=== PATIENT | male | born 1970 | race Caucasian/White ===

== ENCOUNTER 2020-04-02 09:48 | Emergency (ER) | payer OTHER, SELFPAY ==
--- NOTE | 2020-04-02 | XR_ITS ---
WS: [id number] RIGHT FOOT: 3 VIEW(S) TECHNIQUE: AP, oblique and lateral. HISTORY: TRAUMA COMPARISON: None available. No acute fracture or dislocation. Mild narrowing of the first metatarsophalangeal joint. Peripheral vascular calcifications. XR/XR foot RT min 3V* [id number] IMPRESSION: 1. No fracture identified. 2. Peripheral vascular calcifications.
[2020-04-02 09:49] VITALS: O2SAT 95
[2020-04-02 09:56] VITALS: BP 186/112; PULSE 101; RESP 16; TEMP 36.4; O2SAT 98; BMI 35.2
--- NOTE | 2020-04-02 10:12 | XR_ITS ---
WS: [id number] RIGHT KNEE: 3 VIEW(S) TECHNIQUE: AP, oblique(s) and lateral. HISTORY: fall COMPARISON: None available. No fracture or dislocation. No joint space narrowing or osteophytes. No joint effusion. Mild soft tissue edema over the anterior knee. XR/XR knee RT 3V* [id number] IMPRESSION: Mild soft tissue edema anterior to the knee. No fracture.
--- NOTE | 2020-04-02 10:12 | XR_ITS ---
WS: [id number] RIGHT FEMUR: 2 VIEW(S) TECHNIQUE: AP and lateral. HISTORY: fall COMPARISON: None available. No fracture or dislocation. Soft tissues are unremarkable. No foreign body or calcification. XR/XR femur RT min 2V* [id number] Impression: Normal RIGHT femur.
--- NOTE | 2020-04-02 10:12 | XR_ITS ---
WS: [id number] RIGHT TIBIA-FIBULA 2 VIEWS HISTORY: fall COMPARISON: None available. No fracture, dislocation or joint abnormality. XR/XR tibia fibula RT 2V [id number] IMPRESSION: Normal RIGHT tibia-fibula.
--- NOTE | 2020-04-02 10:14 | W.ED.EXTPRO ---
HPI - Extremity Problem General: Chief complaint: Extremity Injury, Lower Stated complaint: PAIN IN RT LEG - THROWN FROM HORSE Time Seen by Provider: 04/02/20 10:06 Source: patient Mode of arrival: wheelchair History of Present Illness: HPI Narrative: right leg pain MD Complaint: extremity pain Onset (ago): minute(s) (30 min ago ) Pain Consistency: constant Location: right Severity scale (1-10): >10 Quality: stabbing and aching Exacerbating factors: weight bearing Review of Systems General: Reports: 10 or more systems reviewed and unremarkable except in HPI and below Musc: Reports: extremity pain (right lower extremity pain-diffuse), extremity swelling and limited range of motion PFSH ED PFSH: Social History Smoking and tobacco status: never smoked Physical Exam Const: COMMON NORMALS: no apparent distress, oriented x3, no limitations and alert GENERAL APPEARANCE: cooperative and comfortable ORIENTATION/CONSCIOUSNESS: Yes awake, Yes oriented to person, Yes oriented to place and Yes oriented to time HENMT: COMMON NORMALS: normocephalic, head/scalp atraumatic, external ears normal, EAC's normal, TM's normal bilaterally and external nose normal HEAD & SCALP: normal to inspection, normocephalic and atraumatic FACE & SINUS: normal facial exam, sinuses nontender and face symmetric NOSE: external nose normal, nares normal and no nasal discharge EXTERNAL EAR: Yes external ears normal EXTERNAL AUDITORY CANAL: EAC's normal TYMPANIC MEMBRANE: TM's normal bilaterally MOUTH: oral and palatal mucosa normal, lip normal and tongue normal THROAT: posterior oropharynx normal, tonsils normal and uvula midline Eye: COMMON NORMALS: PERRL, EOMs intact bilaterally and conjunctivae normal GENERAL EYE: normal appearance of both eyes and normal light reflex EYELID: eyelids normal CONJUNCTIVA: Yes conjunctivae normal PUPIL: Yes PERRL EOM: Yes EOM abnormal DIRECT OPHTHALMOSCOPY: Yes normal light reflex Neck/C-Spine: COMMON NORMALS: full ROM, no lymphadenopathy, supple, no meningeal signs, no JVD and thyroid normal GENERAL: Yes normal visual inspection THYROID: thyroid normal CERVICAL SPINE: Yes cervical ROM normal and Yes normal cervical lordosis Lymph: LYMPHATIC: no lymphadenopathy noted Chest: COMMONS NORMALS: inspection of chest normal and palpation of chest normal Resp: COMMON NORMALS: normal respiratory effort, no retractions and clear to auscultation bilaterally AUSCULTATION: clear to auscultation bilaterally Cardio: COMMON NORMALS: no JVD, regular rate, regular rhythm, S1 normal heart sound, S2 normal heart sound, no gallops, no clicks, no murmurs, no rub and peripheral pulses 2+ throughout RATE: regular rate RHYTHM: regular rhythm HEART SOUNDS: S1 normal and S2 normal PERIPHERAL PULSES: pulses 2+ throughout GI: COMMON NORMALS: normal to inspection, nondistended, normoactive bowel sounds, soft to palpation, non-tender and no masses PALPATION: Yes soft : COMMON NORMALS: Yes no CVA tenderness BLADDER/KIDNEY EXAM: Yes no CVA tenderness Back/Pelvis: COMMON NORMALS: no CVA tenderness, thoracic and lumbar spine normal to inspection, no thoracic nor lumbar tenderness and thoraco-lumbar ROM normal Extremity: COMMON NORMALS: normal to inspection, full ROM, normal capillary refill, no joint enlargement, no clubbing, cyanosis or edema, no calf tenderness and no pedal edema GENERAL: Yes normal exam except as noted RIGHT LOWER EXTREMITY: Yes upper leg (swelling and pain), Yes lower leg (swelling and pain) and Yes foot & digits LEFT LOWER EXTREMITY: Yes ankle joint (swelling and pain ) Neuro: COMMON NORMALS: oriented x3, moves all extremities, no focal motor deficits, no sensory deficits noted and gait normal SENSORIUM/ORIENTATION: Yes alert, Yes oriented to person, Yes oriented to place and Yes oriented to time MENINGEAL SIGNS: Yes no meningeal signs Psych: COMMON NORMALS: mental status grossly normal, thought process normal, cooperative, affect normal, speech normal and activity/motor behavior normal SPEECH: Yes normal speech THOUGHT PROCESS: normal thought process Skin: COMMON NORMALS: no rashes or lesions noted, no wounds and skin turgor normal GENERAL SKIN EXAM: no rashes or lesions noted and turgor normal TRAUMA: no lacerations or abrasions (noted to right knee ) Course ED course: Pt complains of right lower extremity pain after horse fell on him while riding and slid down hill with his leg pinned between ground and horse. Pt unable to bear weight. Radiology ordered and pain medication. Reevaluation(s): Reevaluation #1: No acute fx noted. I am concerned due to the crushing nature of the trauma that the pt could develop compartment syndrome if he does not rest, ICE, and elevate adequately. Strict instructions for offloading for 48 hours at this time and to follow up with PCP in 2 days. Return to ER if worsening in symptoms. Time: 11:59 Vital Signs: Vital signs: Vital Signs Temperature 97.5 F L 04/02/20 09:56 Pulse Rate 101 H 04/02/20 09:56 Respiratory Rate 15 04/02/20 11:27 Blood Pressure 186/112 04/02/20 09:56 Pulse Oximetry 98 04/02/20 11:27 MDM - Extremity (Nontraumatic) Imaging Data^: Other Xray: Radiologist's impression: [address] [address] XRay Report Signed Patient: Keven Gannon Unit #: [id number] : 1970 Age/Sex: 50 / M ADM Date: 04/02/20 Loc: ER Room/Bed: Attending Dr: Ordering Provider/Ordering MD: Claudia Skelton P[employer] CLIPPER Date of Service: 04/02/20 Procedure(s): XR tibia fibula RT 2V 81596 Accession Number(s): [id number] Report Number: [id number] WS: [id number] RIGHT TIBIA-FIBULA 2 VIEWS HISTORY: fall COMPARISON: None available. No fracture, dislocation or joint abnormality. XR/XR tibia fibula RT 2V 00294 IMPRESSION: Normal RIGHT tibia-fibula. Dictated By: Meche Lawson DO Signed By: Meche Lawson DO Signed Date/Time: 04/02/20 1041 DD/ [address] [address] XRay Report Signed Patient: Keven Gannon Unit #: [id number] : 1970 Age/Sex: 50 / M ADM Date: 04/02/20 Loc: ER Room/Bed: Attending Dr: Ordering Provider/Ordering MD: Claudia Skelton P[employer]IR CLIPPER Date of Service: 04/02/20 Procedure(s): XR femur RT min 2V* 02835 Accession Number(s): [id number] Report Number: [id number] WS: [id number] RIGHT FEMUR: 2 VIEW(S) TECHNIQUE: AP and lateral. HISTORY: fall COMPARISON: None available. No fracture or dislocation. Soft tissues are unremarkable. No foreign body or calcification. XR/XR femur RT min 2V* 87613 Impression: Normal RIGHT femur. Dictated By: Meche Lawson DO Signed By: Meche Lawson DO Signed Date/Time: 04/02/20 1038 DD/ [address] [place] [address] XRay Report Signed Patient: Keven Gannon Unit #: [id number] : 1970 Age/Sex: 50 / M ADM Date: 04/02/20 Loc: ER Room/Bed: Attending Dr: Ordering Provider/Ordering MD: Claudia Skelton P[employer]IR CLIPPER Date of Service: 04/02/20 Procedure(s): XR knee RT 3V* 48828 Accession Number(s): [id number] Report Number: [id number] WS: [id number] RIGHT KNEE: 3 VIEW(S) TECHNIQUE: AP, oblique(s) and lateral. HISTORY: fall COMPARISON: None available. No fracture or dislocation. No joint space narrowing or osteophytes. No joint effusion. Mild soft tissue edema over the anterior knee. XR/XR knee RT 3V* [id number] IMPRESSION: Mild soft tissue edema anterior to the knee. No fracture. Dictated By: Meche Lawson DO Signed By: Meche Lawson DO Signed Date/Time: 04/02/20 1040 DD/ [address] [place] [address] XRay Report Signed Patient: Keven Gannon Unit #: [id number] : 1970 Age/Sex: 50 / M ADM Date: 04/02/20 Loc: ER Room/Bed: Attending Dr: Ordering Provider/Ordering MD: Claudia Skelton P[employer] CLIPPER Date of Service: 04/02/20 Procedure(s): XR foot RT min 3V* 01008 Accession Number(s): [id number] Report Number: [id number] WS: [id number] RIGHT FOOT: 3 VIEW(S) TECHNIQUE: AP, oblique and lateral. HISTORY: TRAUMA COMPARISON: None available. No acute fracture or dislocation. Mild narrowing of the first metatarsophalangeal joint. Peripheral vascular calcifications. XR/XR foot RT min 3V* [id number] IMPRESSION: 1. No fracture identified. 2. Peripheral vascular calcifications. Dictated By: Meche Lawson DO Signed By: Meche Lawson DO Signed Date/Time: 04/02/201134 DD/ 33 Discharge Plan Discharge Patient Disposition: Home, Self-Care Clinical Impression: Contusion Condition: Stable Prescriptions: New cyclobenzaprine 10 mg tablet 10 mg PO BID PRN (Reason: muscle spasm) Qty: 10 RF: 0 Tylenol-Codeine #3 300-30 mg tablet 1 tab PO Q8H PRN (Reason: pain) Qty: 14 RF: 0 No Action pioglitazone 15 mg tablet 15 mg PO DAILY RF: 0 olmesartan 20 mg tablet 20 mg PO DAILY RF: 0 Discharge Diet: Usual diet Discharge Activity: Use walker/crutches as instructed Activity Restrictions/Additional Instructions: Rest, ICE, elevate x 48 hours; follow up with PCP without fail. Return for worsening in pain or swelling and warmth of the right leg. Stand Alone Forms: Work/School Release Coding Level of Care Code ED Health Diagnostics Teacher for Chg Fwd Exam Comprehensive
--- NOTE | 2020-04-02 11:03 | PC.NURSE ---
Pillow placed under right knee
[2020-04-02 11:27] VITALS: RESP 15; O2SAT 98
[2020-04-02] MEDS: HYDROmorphone 1 mg/mL INJ 1 mL IVP (11:27)
[2020-04-02] MEDS: ondansetron 2 mg/ML SDV 2 mL 4 MG IVP (11:27)
--- NOTE | 2020-04-02 12:14 | PC.NURSE ---
Read and agree with assessment
[2020-04-02 12:18] VITALS: BP 121/81; PULSE 79; RESP 16; O2SAT 96
[2020-04-02] MEDS: neomycin-poly-bacitracin oint 0.9 gm Pkt 1 APPLIC TOPICAL (12:45)
--- NOTE | 2020-04-02 12:51 | PC.NURSE ---
Wound on right knee cleaned with soap and water. HAMIDA was applied directly to the wound. The wound was covered with witha non-stick dressing. This was wrapped with coban.
--- NOTE | 2020-04-02 12:57 | PC.NURSE ---
Patient up for discharge. He was offered paper scrubs to facilitate his discharge. He insists on waiting for his family to bring him sweatpants.
[2020-04-02 14:03] VITALS: BP 145/85; PULSE 75; RESP 15; O2SAT 97
[2020-04-02] MEDS: tetanus-diphtheria tox (adult) 0.5 mL SDV IM (14:06)
== END 2020-04-02 14:25 | disposition home or self-care (01) ==
PROVIDERS: Emergency Provider Nurse Practitioner Family
DX: S80.11XA Contusion of right lower leg, initial encounter (principal); V80.919A Animal-rider injured in unspecified transport accident, initial encounter; Z23 Encounter for immunization
CPT/HCPCS: 12345; 29530; 73552; 73562; 73590; 73630; 90471; 90714; 96374; 96375; 96376; 99282; 99283; E0114; J1170; J2405

== ENCOUNTER → 2020-08-28 10:24 | Outpatient (BNVA) | payer MEDICARE, SELFPAY | PROVIDERS: Visit Provider Nurse Practitioner Family | DX: E11.9 Type 2 diabetes mellitus without complications (principal); I10 Essential (primary) hypertension | CPT/HCPCS: 80053; 80061; 83036; 84443; 85025 ==

== ENCOUNTER 2021-03-26 21:47 | Inpatient (IN) | payer MEDICARE, SELFPAY ==
[2021-03-26 21:50] VITALS: BP 231/155; PULSE 97; RESP 16; TEMP 36.6; O2SAT 99; BMI 36.6
--- NOTE | 2021-03-26 21:57 | XRR_ITS ---
PROCEDURE INFORMATION: Exam: XR Chest Exam date and time: 03/26/2021 10:00 PM Age: 51 years old Clinical indication: Cough and shortness of breath; Patient HX: SOB, cough, pain under left armpit, left arm numbness; Additional info: TIA TECHNIQUE: Imaging protocol: XR of the chest. Views: 1 view. COMPARISON: CR Chest 1 [place] [id number] 06/04/2014 10:41 PM FINDINGS: Lungs: There are multiple calcified pulmonary nodules consistent with prior granulomatous disease. Pleural spaces: Unremarkable. No pleural effusion. No pneumothorax. Heart/Mediastinum: Unremarkable. No cardiomegaly. Bones/joints: Unremarkable. XR/XR chest 1V portable [id number] IMPRESSION: No acute disease.
--- NOTE | 2021-03-26 21:57 | ECG_ITS ---
[facility] Test Date: 2021-03-26 Pat Name: Keven Gannon Department: Room: Gender: Male Legal Office Administrator: : 1970 Requested By: Yvrose Pantoja Order Number: [id number] Kimberly MD: Tobias Higuera M.D. Measurements Intervals [place] Rate: 88 P: 45 SC: 158 QRS: -21 QRSD: 94 T: 115 QT: 346 QTc: 421 Interpretive Statements SINUS RHYTHM POSSIBLE LEFT ATRIAL ENLARGEMENT [-0.1mV P WAVE IN V1/V2] BORDERLINE LEFT AXIS DEVIATION [QRS AXIS < -20] POSSIBLE RIGHT VENTRICULAR CONDUCTION DELAY [RSR (QR) IN V1/V2] LEFT VENTRICULAR HYPERTROPHY AND ST-T CHANGE [VOLTAGE CRITERIA PLUS ST/T ABNORMALITY] No previous ECG available for comparison Electronically Signed On 03-27-2021 9:33:43 CDT by Tobias Higuera M.D. [email or web address]/store/NU/[id number] f
--- NOTE | 2021-03-26 21:57 | CTR_ITS ---
PROCEDURE INFORMATION: Exam: CT Head Without Contrast Exam date and time: 03/26/2021 10:02 PM Age: 51 years old Clinical indication: Pain; Weakness, extremity; Headache; Patient HX: PIRES. Left arm numbness; Additional info: TIA TECHNIQUE: Imaging protocol: Computed tomography of the head without contrast. Radiation optimization: All CT scans at this facility use at least one of these dose optimization techniques: automated exposure control; mA and/or kV adjustment per patient size (includes targeted exams where dose is matched to clinical indication); or iterative reconstruction. COMPARISON: No relevant prior studies available. RADIATION DOSE METRICS: Total DLP (mGy-cm): 812.54 FINDINGS: Brain: There is mild parenchymal atrophy and chronic small vessel disease. No acute infarct or hemorrhage. Cerebral ventricles: No ventriculomegaly. Bones/joints: Unremarkable. No acute fracture. Paranasal sinuses: Paranasal sinuses are clear. No air-fluid level. Mastoid air cells: Visualized mastoid air cells are clear. Soft tissues: Unremarkable. CT/CT head wo con* [id number] IMPRESSION: 1. No acute infarct or hemorrhage. 2. Mild parenchymal atrophy and chronic small vessel disease. Radiation Dose CTDIVOL = (mGy): DLP = 812.54 (mGy-cm)
--- NOTE | 2021-03-26 22:13 | ED_ITS ---
HPI - Neuro Symptoms/Deficit General: Chief Complaint: Neuro Symptoms/Deficit Stated Complaint: FELT LIKE LIGHTENING GOING DOWN L FT, L ARM NUMB Time Seen by Provider: 03/26/21 21:50 Source: patient Mode of arrival: ambulatory Limitations: no limitations History of Present Illness: HPI Narrative: 51-year-old male states that roughly an hour before arrival started having numbness in his left arm and leg. He states he then had weakness in his arm and leg along with slurred speech. He states he was not able to walk due to the weakness in his leg and could not hardly move his arm. He states he had a very difficult time speaking as well. He states his last few minutes is since completely resolved. He denies any more paresthesias. He states he does have a mild headache. He is quite hypertensive here but he states he has always had high blood pressure and was supposed to take medications but does not. Denies any worsening improving factors. Associated symptoms: Deny chest pain, headache(s), nausea or vomiting Review of Systems Const: Denies: fever(s), chills, body aches or change in appetite Eyes: Denies: blurry vision or eye discomfort ENMT: Denies: throat pain or dental pain Card: Denies: chest pain Resp: Denies: dyspnea GI: Denies: abdominal pain, nausea, vomiting or diarrhea : Denies: dysuria Musc: Denies: neck pain or back pain Skin/Breast: Denies: rash Neuro: Reports: weakness in extremities; Denies: headache(s) Psych: Denies: depression Maksim/Lymph: Denies: easy bruising All/Imm: Denies: urticaria PFSH ED PFSH: Medical History (Updated 03/26/21 @ 23:19 by Yvrose Pantoja MD) Deafness in left ear Essential hypertension Hx of diabetes mellitus Hx of essential hypertension Surgical History No pertinent past surgical history Social History Smoking and tobacco status: never smoked Second hand smoke exposure: No Smoking risk assessment/counseling performed?: No Alcohol intake: never Desire information about alcohol rehabilitation?: No Counseling given: No Desire information about substance/drug rehabilitation?: No Counseling given: No Adopted: No Caregiver/support person: No Lives independently: Yes Household members: significant other Housing: House Marital status: Single Number of children: 3 service: No History of recent travel: No NIH stroke score NIHSS: Level Of Consciousness - 1a: 0 Level Of Consciousness Questions - 1b: Both Correct Level Of Consciousness Commands - 1c: Both Correct Best Gaze - 2: Normal Visual Roy - 3: No Visual Loss Facial Palsy - 4: Normal Motor Arm Right - 5: No Drift Motor Arm Left - 5: No Drift Motor Leg Right - 6: No Drift Motor Leg Left - 6: No Drift Limb Ataxia - 7: Abs ent Sensory - 8: Normal Best Language - 9: No Aphasia Dysarthia - 10: Normal Extinction And Inattention - 11: 0 Score: Total Score: 0 Physical Exam Const: COMMON NORMALS: no acute distress, patient oriented x3 and healthy appearing HENMT: COMMON NORMALS: normocephalic and atraumatic HEAD & SCALP: normocephalic and atraumatic Eye: COMMON NORMALS: Equal, round and reactive pupils present and EOMs intact bilaterally PUPIL: Yes Equal, round and reactive pupils present Neck/C-Spine: COMMON NORMALS: full ROM and supple Chest: COMMONS NORMALS: normal inspection of the chest and normal palpation of entire chest wall Resp: COMMON NORMALS: normal respiratory effort, No retractions, No use of accessory muscles and clear to auscultation bilaterally AUSCULTATION: clear to auscultation bilaterally Cardio: COMMON NORMALS: regular rate, regular rhythm and No murmurs present (Cardio) RATE: regular rate RHYTHM: regular rhythm GI: COMMON NORMALS: Normal to inspection, nondistended, normoactive bowel sounds present, Soft to palpation, non-tender and no masses PALPATION: Yes Soft to palpation Extremity: COMMON NORMALS: normal to inspection and full ROM Neuro: COMMON NORMALS: patient oriented x3, moves all extremities and no focal motor deficits CRANIAL NERVES: Yes CN normal except as noted COORDINATION/BALANCE: [id number] test normal SPEECH: speech normal GAIT: Yes Normal gait present MOTOR EXAM: 5/5 motor strength present throughout COORDINATION: [id number] test normal Psych: COMMON NORMALS: mental status grossly normal, Normal thought process present and cooperative THOUGHT PROCESS: Normal thought process present Skin: COMMON NORMALS: no rashes or lesions noted and no wounds GENERAL SKIN EXAM: no rashes or lesions noted Course Vital Signs: Vital signs: Vital Signs Temperature 97.8 F 03/26/21 21:50 Pulse Rate 80 03/26/21 22:44 Respiratory Rate 18 03/26/21 22:44 Blood Pressure 214/138 03/26/21 22:44 Pulse Oximetry 97 03/26/21 22:44 MDM - Neuro Symptoms/Deficit MDM Narrative: Medical decision making narrative: Patient presents here with a TIA on hypertension. His hypertension has been untreated for years. He is not a TPA candidate as an NIH is now 0 symptoms of completely resolved. CT head here shows no acute findings. I spoke to hospitalist will admit for observation for his high blood pressure and further work-up of his TIA. Lab Data: Labs: Lab Results 03/26/21 03/26/21 03/26/21 Range/Units 22:10 22:10 22:10 WBC 10.3 H (4.0-10.0) 10^3/ uL RBC 5.83 H (4.1-5.3) 10^6/u L Hgb 17.5 H (11.7-16.6) g/dL Hct 49.4 (42.0-52.0) % MCV 84.7 (80-94) fL MCH 30.0 (28.0-34.0) pg MCHC 35.4 (30.0-36.0) g/dL RDW 12.7 (12.1-15.1) % Plt Count 195 (130-400) 10^3/c mm MPV 11.5 H (7.4-10.4) fL Neut % (Auto) 64.8 % Lymph % (Auto) 26.8 % Whitley % (Auto) 5.3 % Eos % (Auto) 1.5 % Baso % (Auto) 0.5 % Neut # (Auto) 6.67 (1.8-7.7) 10^3/u L Lymph # (Auto) 2.8 (0.8-4.8) 10^3/u L Whitley # (Auto) 0.5 (0.2-0.9) 10^3/u L Eos # (Auto) 0.2 (0.0-0.8) 10^3/u L Baso # (Auto) 0.1 (0.0-0.1) 10^3/u L Nucleated RBC % (a uto) 0 % Nucleated RBCs # 0.0 /100WBC Sodium 134 L (136-145) mmol/L Potassium 4.3 (3.5-5.1) mmol/L Chloride 100 (98-107) mmol/L Carbon Dioxide 25 (22-29) mmol/L Anion Gap 13.3 (5-19) BUN 12 (6-20) mg/dL Creatinine 0.8 (0.7-1.2) mg/dL GFR Calculation 101.1 (90-130) mL/min Glucose 392 H (65-115) mg/dL Calculated Osmolal ity 294 (285-295) mOsm/k g Calcium 8.6 (8.5-10.5) mg/dL Total Bilirubin 0.7 (0.15-1.2) mg/dL AST 24 (0-40) U/L ALT 30 (0-41) U/L Alkaline Phosphata se 118 (40-130) IU/L Troponin T Baselin e 23 H (0-15) ng/L Total Protein 6.7 (6.6-8.7) g/dL Albumin 4.0 (3.5-5.2) g/dL Globulin 2.7 (1.3-4.6) g/dL Imaging Data^: CT Head: Attestation: I personally reviewed and interpreted this imaging study as follows: Radiologist's impression: [address] [address] [address] Scan Report Signed Patient: Keven Gannon Unit #: [id number] : 1970 2 Age/Sex: 51 / M ADM Date: 03/26/21 Loc: ER Room/Bed: Attending Dr: Ordering Provider/Ordering MD: Yvrose Pantoja MD Date of Service: 03/26/21 Procedure(s): CT head wo con* [id number] Accession Number(s): [id number] Report Number: [id number] PROCEDURE INFORMATION: Exam: CT Head Without Contrast Exam date and time: 03/26/2021 10:02 PM Age: 51 years old Clinical indication: Pain; Weakness, extremity; Headache; Patient HX: PIRES. Left arm numbness; Additional info: TIA TECHNIQUE: Imaging protocol: Computed tomography of the head without contrast. Radiation optimization: All CT scans at this facility use at least one of these dose optimization techniques: automated exposure control; mA and/or kV adjustment per patient size (includes targeted exams where dose is matched to clinical indication); or iterative reconstruction. COMPARISON: No relevant prior studies available. RADIATION DOSE METRICS: Total DLP (mGy-cm): 812.54 FINDINGS: Brain: There is mild parenchymal atrophy and chronic small vessel disease. No acute infarct or hemorrhage. Cerebral ventricles: No ventriculomegaly. Bones/joints: Unremarkable. No acute fracture. Paranasal sinuses: Paranasal sinuses are clear. No air-fluid level. Mastoid air cells: Visualized mastoid air cells are clear. Soft tissues: Unremarkable. CT/CT head wo con* [id number] IMPRESSION: 1. No acute infarct or hemorrhage. 2. Mild parenchymal atrophy and chronic small vessel disease. EKG Data^: EKG 1: Attestation: I personally reviewed and interpreted this EKG as follows: EKG interpretation date: 03/26/21 EKG interpretation time: 22:02 Interpretation: nsr hr [address] or t wave abnormalities qrs 94 qtc 392 Discharge Plan Discharge Patient Disposition: Admitted As Inpatient Admit Provider: Meaghan Arguelles Clinical Impression: Transient cerebral ischemia Qualifiers: Transient cerebral ischemia type: unspecified Qualified Code(s): G45.9 - Transient cerebral ischemic attack, unspecified Hypertension Qualifiers: Hypertension type: unspecified Qualified Code(s): I10 - Essential (primary) hypertension Condition: Stable Coding Level of Care Code ED Senior Administrative Services Officer for g Fwd Exam Comprehensive
[2021-03-26 22:16] LABS: Basophils # 0.1 10^3/uL (0.0-0.1); Basophils % 0.5 %; Eosinophils # 0.2 10^3/uL (0.0-0.8); Eosinophils % 1.5 %; Hematocrit 49.4 % (42.0-52.0); Hemoglobin 17.5 g/dL (11.7-16.6); Lymphocytes # 2.8 10^3/uL (0.8-4.8); Lymphocytes % 26.8 %; Mean Corpuscular HGB Conc 35.4 g/dL (30.0-36.0); Mean Corpuscular Volume 84.7 fL (80-94); Mean Platelet Volume 11.5 fL (7.4-10.4); Monocytes # 0.5 10^3/uL (0.2-0.9); Monocytes % 5.3 %; Neutrophils # 6.67 10^3/uL (1.8-7.7); Neutrophils % 64.8 %; Nucleated Red Blood Cells % 0 %; Platelet Count 195 10^3/cmm (130-400); Red Blood Count 5.83 10^6/uL (4.1-5.3); Red Cell Distribution Width 12.7 % (12.1-15.1); White Blood Count 10.3 10^3/uL (4.0-10.0)
[2021-03-26 22:36] LABS: Alanine Aminotransferase 30 U/L (0-41); Alkaline Phosphatase 118 IU/L (40-130); Aspartate Amino Transferase 24 U/L (0-40); Blood Urea Nitrogen 12 mg/dL (6-20); Calcium 8.6 mg/dL (8.5-10.5); Carbon Dioxide 25 mmol/L (22-29); Chloride 100 mmol/L (98-107); Globulin 2.7 g/dL (1.3-4.6); Glomerular Filtration Rate 101.1 mL/min (90-130); Glucose 392 mg/dL (65-115); Osmolality Calculated 294 mOsm/kg (285-295); Sodium 134 mmol/L (136-145); Total Bilirubin 0.7 mg/dL (0.15-1.2); Total Protein 6.7 g/dL (6.6-8.7); Troponin(5th) Baseline 23 ng/L (0-15)
[2021-03-26 22:44] VITALS: BP 214/138; PULSE 80; RESP 18; O2SAT 97
[2021-03-26] MEDS: labetalol 5 mg/mL SDV 20mL 10 MG IVP (22:50)
[2021-03-26 22:51] LABS: Anion Gap 13.3 (5-19); Potassium 4.3 mmol/L (3.5-5.1)
--- NOTE | 2021-03-26 23:57 | ECG_ITS ---
[facility] Test Date: 2021-03-26 Pat Name: Keven Gannon Department: Room: 251 Gender: Male Breast Surgeon: : 1970 Requested By: Yvrose Pantoja Order Number: [id number] Kimberly MD: Tobias Higuera M.D. Measurements Intervals [place] Rate: 70 P: 32 ME: 171 QRS: -18 QRSD: 101 T: 136 QT: 396 QTc: 428 Interpretive Statements SINUS RHYTHM INCOMPLETE RIGHT BUNDLE BRANCH BLOCK [90+ ms QRS DURATION, TERMINAL R IN V1/V2, 40+ ms S IN I/aVL/V4/V5/V6] LEFT VENTRICULAR HYPERTROPHY AND ST-T CHANGE [VOLTAGE CRITERIA PLUS ST/T ABNORMALITY] Compared to ECG 03/26/2021 22:02:17 Incomplete right bundle-branch block now present ST (T wave) deviation still present Electronically Signed On 03-27-2021 9:34:32 CDT by Tobias Higuera M.D. [id number]
--- NOTE | 2021-03-26 23:58 | P.HP_ITS ---
Providers/Chief Complaint Admitting Physician: Meaghan Arguelles MD Chief Complaint: FELT LIKE LIGHTENING GOING DOWN L FT, L ARM NUMB History of Present Illness Keven Gannon is a 51 year old male who has history of type 2 diabetes, sub optimal control hypertension, and today with chief complaint of left-sided weakness. 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 Does not follow-up with his PCP on regular basis, presented today after he noticed left- sided weakness 4 hours prior to his arrival in the ER. He first noticed that his left leg was getting heavy, he was not able to move his toes, it gradually progressed and involved his left arm as well. He did not notice any facial droop, slurring of speech however dysarthria was endorsed by the EMS. On arrival in the ER his symptoms resolved. He was diagnosed with hypertensive e mergency and TIA he received labetalol 10 mg IV push at the time of my evaluation blood pressure 206/109 mmHg patient was complaining of headache no active chest pain shortness of breath. Chest x-ray without pulmonary edema no other endorgan damage, he is complaining of headache. CT head unremarkable, I have requested CTA head and neck telemetry showing sinus rhythm EKG without ischemic or infarctive changes Will start on Cardene drip with reduction of mean arterial pressure 25% in next 2 to 3 hours Review of Systems Const: Denies: fever(s), body aches or fatigue Eyes: Denies: change in vision ENMT: Denies: throat pain Card: Denies: chest pain Resp: Denies: dyspnea GI: Denies: abdominal pain : Denies: flank pain Musc: Denies: neck pain Skin/Breast: Denies: rash Neuro: Reports: headache(s) Psych: Denies: anxiety Endo: Denies: polyuria Maksim/Lymph: Denies: easy bruising All/Imm: Denies: urticaria Medications/Allergies Home Medications Medication Instructions Recorded Confirmed Last Taken Type acetaminophen-codeine 1 tab PO Q8H PRN #14 tab 04/02/20 08/28/20 Unknown Rx [Tylenol-Codeine #3] cyclobenzaprine 10 mg PO BID PRN #10 tab 04/02/20 08/28/20 Unknown Rx olmesartan 40 mg tablet 40 mg PO DAILY 30 Days #30 tab 08/28/20 08/28/20 Unknown Rx empagliflozin 10 mg tablet 10 mg PO DAILY 30 Days #30 tab 09/10/20 09/10/20 Unknown Rx Allergies Allergy/AdvReac Type Severity Reaction Status Date / Time No Known Allergies Allergy Verified 04/02/20 10:02 PFSH Acute PFSH: Medical History (Updated 03/27/21 @ 00:59 by Meaghan Arguelles MD) Deafness in left ear Essential hypertension Hx of diabetes mellitus Hx of essential hypertension Surgical History No pertinent past surgical history Social History Smoking and tobacco status: never smoked Second hand smoke exposure: No Smoking risk assessment/counseling performed?: No Alcohol intake: never Desire information about alcohol rehabilitation?: No Counseling given: No Desire information about substance/drug rehabilitation?: No Counseling given: No Adopted: No Caregiver/support person: No Lives independently: Yes Household members: significant other Housing: House Marital status: Single Number of children: 3 service: No History of recent travel: No Vitals/I&O/Wt Last Vital Signs Temp 97.8 F 03/26/21 21:50 Pulse 80 03/26/21 22:44 Resp 18 03/26/21 22:44 BP 214/138 03/26/21 22:44 Pulse Ox 97 03/26/21 22:44 Weight last 48 hrs Weight 115.666 kg Physical Exam Narrative: EXAM NARRATIVE: Very pleasant cooperative male, Was complaining of headache at the time of my evaluation no other chest pain shortness of breath or abdominal pain NIH 0 No neurological deficit No slurring of speech no facial droop No blurry vision S1, S2 no murmur appreciated Lower extremity no edema gangrene or ulcer Abdomen distended with obesity nontender Bilateral breath sounds without adventitious rhonchi or crackles Appropriate mood and affect Data : 03/26/21 22:10 03/26/21 22:10 A&P Assessment and plan (1) Hypertensive emergency: Status: Acute (2) Transient cerebral ischemia: Status: Acute Qualifiers: Transient cerebral ischemia type: unspecified Qualified Code(s): G45.9 - Transient cerebral ischemic attack, unspecified (3) Hypertension: Status: Acute Qualifiers: Hypertension type: unspecified Qualified Code(s): I10 - Essential (primary) hypertension (4) Diabetes mellitus: Status: Chronic Qualifiers: Diabetes mellitus type: type 2 Diabetes mellitus prison insulin use: without prison use Diabetes mellitus complication status: without complication Qualified Code(s): E11.9 - Type 2 diabetes mellitus without complications Additional A&P Information TIA with hypertensive emergency Received labetalol 10 mg IV in the ER Current blood pressure 206/109 mmHg patient is complaining of headache Qualifies for hypertensive emergency we will start him on Cardene drip with goal of mean arterial pressure reduction 20 to 30% in next 3 to 4 hours, Requested CTA head and neck, CT head without contrast unremarkable chest x-ray without pulmonary edema no kidney function abnormality, no active chest pain Monitor overnight on cardiac telemetry Started dual antiplatelet therapy High-dose statin initiated Hypertensive emergency currently on Cardene drip will add 3 antihypertensive agents, adding amlodipine and hydrochlorothiazide, at home he takes olmesartan which I would continue Requested hemoglobin A1c level and lipid panel Does not follow-up with PCP, kindly set up an appointment for discharge Consistent carb diet Moderate sliding scale DVT prophylaxis Lovenox Full code Attestations Medical Necessity Statement*: Anticipating stay in the hospital cross more than 2 midnights for management of hypertensive emergency headache and TIA, currently requiring IV Cardene for hypertensive emergency Adding hydrochlorothiazide which will also need monitoring for at least next 24 hours in case he experiences electrolyte abnormality Time Spent in Patient Care: (>than 50% of time spent in counselling and/or direct pt care on unit) . 40mins Coding Level of Care Code Acute Reeling And Tubing Machine Operator for Dylon Sylvester Diagnoses Hypertensive emergency I16.1 Transient cerebral ischemia G45.9 Transient cerebral ischemia type: unspecified Hypertension I10 Hypertension type: unspecified Diabetes mellitus E11.9 Diabetes mellitus type: type 2 Diabetes mellitus ad terminal makeup operator insulin use: without ad terminal makeup operator use Diabetes mellitus complication status: without complication
[2021-03-27] VITALS (105 sets, daily range): BP systolic 109–242; BP diastolic 71–136; PULSE 61–120; RESP 14–30; TEMP 36.6–36.7; O2SAT 91–100
[2021-03-27] MEDS: labetalol 5 mg/mL SDV 20mL 10 MG IVP (00:08)
[2021-03-27] MEDS: aspirin 325 mg Tablet PO (00:09)
[2021-03-27 00:14] LABS: Troponin 5 2HR 21.14 ng/L (0-15)
[2021-03-27 00:15] LABS: Troponin 5 2HR Delta -1.86 ABS# (0-10)
--- NOTE | 2021-03-27 00:23 | PC.NURSE ---
pt report called to Jayda MEMBRENO in SBAR format.
--- NOTE | 2021-03-27 00:28 | CTR_ITS ---
PROCEDURE INFORMATION: Exam: CT Angiography Head With Contrast, Arteriography Exam date and time: 03/27/2021 12:29 AM Age: 51 years old Clinical indication: Pain; Weakness; Headache; Patient HX: PIRES with left arm numbness. ; Additional info: TIA TECHNIQUE: Imaging protocol: Computed tomography angiography of the head with contrast. Exam focused on the arteries. 3D rendering (Not supervised by radiologist): MIP and/or 3D reconstructed images were created by the technologist. Radiation optimization: All CT scans at this facility use at least one of these dose optimization techniques: automated exposure control; mA and/or kV adjustment per patient size (includes targeted exams where dose is matched to clinical indication); or iterative reconstruction. Contrast material: OMNI 350; Contrast volume: 95 ml; Contrast route: INTRAVENOUS (IV); COMPARISON: CT head wo con* [id number] 03/26/2021 10:27 PM RADIATION DOSE METRICS: Total DLP (mGy-cm): 2706.75 FINDINGS: ANTERIOR CIRCULATION: Right internal carotid artery: Unremarkable. Intracranial segment is patent with no significant stenosis. No aneurysm. Right middle cerebral artery: Unremarkable. No occlusion or significant stenosis. No aneurysm. Right anterior cerebral artery: Unremarkable. No occlusion or significant stenosis. No aneurysm. Left internal carotid artery: Unremarkable. Intracranial segment is patent with no significant stenosis. No aneurysm. Left middle cerebral artery: Unremarkable. No occlusion or significant stenosis. No aneurysm. Left anterior cerebral artery: Unremarkable. No occlusion or significant stenosis. No aneurysm. POSTERIOR CIRCULATION: Right vertebral artery: Unremarkable. No occlusion or significant stenosis. No aneurysm. Left vertebral artery: Unremarkable. No occlusion or significant stenosis. No aneurysm. Basilar artery: Unremarkable. No occlusion or significant stenosis. No aneurysm. Right posterior cerebral artery: Unremarkable. No occlusion or significant stenosis. No aneurysm. Left posterior cerebral artery: Unremarkable. No occlusion or significant stenosis. No aneurysm. Brain: No definite mass, mass effect, or midline shift. Cerebral ventricles: No ventriculomegaly. Bones/joints: Unremarkable. No acute fracture. Soft tissues: Unremarkable. IMPRESSION: No large vessel stenosis or occlusion. PROCEDURE INFORMATION: Exam: CT Angiography Neck With Contrast Exam date and time: 03/27/2021 12:29 AM Age: 51 years old Clinical indication: Pain; Weakness; Headache; Patient HX: PIRES with left arm numbness. ; Additional info: TIA TECHNIQUE: Imaging protocol: Computed tomography angiography of the neck with contrast. 3D rendering (Not supervised by radiologist): MIP and/or 3D reconstructed images were created by the technologist. Radiation optimization: All CT scans at this facility use at least one of these dose optimization techniques: automated exposure control; mA and/or kV adjustment per patient size (includes targeted exams where dose is matched to clinical indication); or iterative reconstruction. Contrast material: OMNI 350; Contrast volume: 95 ml; Contrast route: INTRAVENOUS (IV); COMPARISON: CT head wo con* [id number] 03/26/2021 10:27 PM RADIATION DOSE METRICS: Total DLP (mGy-cm): 2706.75 FINDINGS: Right common carotid artery: No stenosis. No dissection or occlusion. Right internal carotid artery: No stenosis of the extracranial segment. No dissection or occlusion. Right external carotid artery: No occlusion or stenosis of the origin. Right vertebral artery: The right vertebral artery terminates in the PICA. Left common carotid artery: No stenosis. No dissection or occlusion. Left internal carotid artery: No stenosis of the extracranial segment. No dissection or occlusion. Left external carotid artery: No occlusion or stenosis of the origin. Left vertebral artery: Left vertebral artery is dominant. 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 Bones/joints: No acute fracture. Soft tissues: Normal. No significant soft tissue swelling. CT/CT angio headneck* [id number] IMPRESSION: 1. No large vessel stenosis or occlusion. 2. 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 3. Right vertebral artery terminates in the PICA without joining the basilar artery. REFERENCES: NASCET CRITERIA. The degree of internal carotid artery stenosis is based on NASCET criteria. Normal is no stenosis. Mild is less than 50% stenosis. Moderate is 50-69% stenosis. Severe is 70% to 99% stenosis. Total occlusion is no detectable patent lumen. Radiation Dose CTDIVOL = (mGy): DLP = 2706.75~2706.75 (mGy-cm)
[2021-03-27] MEDS: iohexol 350 mg/mL 100 mL Btl IV (00:49)
--- NOTE | 2021-03-27 00:55 | PC.NURSE ---
pt report called to Yen MEMBRENO in CSU in SBAR format.
[2021-03-27 01:32] LABS: Glucose Point of Care 329 mg/dL (70-110)
[2021-03-27 01:45] LABS: Estmated Average Glucose 275; Hemoglobin A1C 11.2 % (4.0-6.0)
[2021-03-27 01:45] LABS: Chol HDL Ratio 1.74 mg/dL (1.0-5.00); Cholesterol 127 mg/dL (0-200); HDL Cholesterol 73 mg/dL (60-100); LDL Cholesterol Calculated 26 mg/dL (50-129); LDL HDL Ratio 0.36 RATIO (0.00-3.22); Triglycerides 138 mg/dL (0-150)
[2021-03-27] MEDS: amlodipine 10 mg Tablet PO ×2 (02:20→08:59)
[2021-03-27] MEDS: enoxaparin 40 mg/0.4 mL Syringe SUBCUT (02:20)
--- NOTE | 2021-03-27 03:57 | ECG_ITS ---
[facility] Test Date: 2021-03-27 Pat Name: Keven Gannon Department: Room: 112 Gender: Male Meteorology Faculty Member: : 1970 Requested By: Yvrose Pantoja Order Number: [id number] Kimberly MD: Ruth Rodriguez M.D. Measurements Intervals [place] Rate: 68 P: 40 NC: 172 QRS: -10 QRSD: 100 T: 152 QT: 392 QTc: 419 Interpretive Statements SINUS RHYTHM INCOMPLETE RIGHT BUNDLE BRANCH BLOCK [90+ ms QRS DURATION, TERMINAL R IN V1/V2, 40+ ms S IN I/aVL/V4/V5/V6] LEFT VENTRICULAR HYPERTROPHY AND ST-T CHANGE [VOLTAGE CRITERIA PLUS ST/T ABNORMALITY] Compared to ECG 03/26/2021 23:51:25 No significant changes Electronically Signed On 03-27-2021 20:51:42 CDT by Ruth Rodriguez M.D. [id number]
--- NOTE | 2021-03-27 06:31 | PC.NURSE ---
Around 0220: Patients BG 329. Notified Dr. Arguelles. Orders received, see JAN.
[2021-03-27 06:54] LABS: Glucose Point of Care 273 mg/dL (70-110)
[2021-03-27] MEDS: hydroCHLOROthiazide 25 mg Tablet 12.5 MG PO (08:58)
[2021-03-27] MEDS: aspirin 81 mg EC Tablet PO (09:00)
[2021-03-27] MEDS: clopidogrel 75 mg Tablet PO (09:00)
[2021-03-27] MEDS: losartan 50 mg Tablet 100 MG PO (09:00)
[2021-03-27 11:37] LABS: Glucose Point of Care 262 mg/dL (70-110)
--- NOTE | 2021-03-27 11:48 | PC.CHAP ---
Pastoral Care Encounter/Spiritual Assessment Type of Contact [] Declined whizzer visit [] Patient/Family/Request visit [] Outpatient visit [] Follow-up visit [] Physician referral [] Code/Alert [xx] Routine visit [] Staff referral [] Actively dying [] Patient sleeping [] Family support [] [] Out of room [] Palliative care [] [] Receiving care in room [] Pre-surgical visit [] Trauma [] Long length of stay [] ICU visit [] Other: Relational/Emotional Strength [xx] Patient feels connected with others/family/visitors/staff [] Distress [] Loneliness/isolation [] Abandonment Spirituality of Patient [xx] Person of Valarie [xx] Attends Adventist of their Valarie [xx] Believes in Prayer [xx] Reads Bible or Religion materials [] There are Spiritual issues to be addressed Records Management Associate Interventions [xx] Prayer [xx] Active listening [xx] Non-anxious presence [] Spiritual/emotional support [] Crisis/trauma care [] Spiritual counseling [] Bereavement support [] Provided bereavement packet [] Provided Bible/devotional materials [] Provided toy/stuffed animal, coloring book to patient or family member [] Provided Communion [] Anointing/[place] [] Salvation [xx] Completed spiritual assessment [] Other: Impact on Illness or Injury [] Angry [] Fearful [] Anxious [] Often cries [] Exhaustion [] Unable to work [] Unable to attend gnosticist [] Unable to walk/stand [] Unable to read [] Unable to drive [] Unable to eat/drink [] Unable to sleep [] Unable to be with family [] Patient intubated [] Other: Summary Girl friend present. Patient expects to be discharged by end of day. Records Management Associate prayed for both people. Time spent with patient 6 minutes
--- NOTE | 2021-03-27 12:45 | P.DS_ITS ---
Discharge Providers Date of Admission: 03/26/21 23:21 Date of Discharge: March 27, 2021 Attending Provider at Admission: Meaghan Arguelles MD Attending Provider at Discharge: Marilyn Luther MD Diagnoses at Discharge Discharge Diagnosis (1) Hypertensive emergency: Status: Acute (2) Transient cerebral ischemia: Status: Acute Qualifiers: Transient cerebral ischemia type: unspecified Qualified Code(s): G45.9 - Transient cerebral ischemic attack, unspecified (3) Hypertension: Status: Acute Qualifiers: Hypertension type: unspecified Qualified Code(s): I10 - Essential (primary) hypertension (4) Diabetes mellitus: Status: Chronic Qualifiers: Diabetes mellitus complication status: without complication Diabetes mellitus intermodal dispatcher insulin use: without penitentiary use Diabetes mellitus type: type 2 Qualified Code(s): E11.9 - Type 2 diabetes mellitus without complications Reason for Visit Reason for Visit: FELT LIKE LIGHTENING GOING DOWN L FT, L ARM NUMB Hospital Course Hospital Course 51 year old male who has history of type 2 diabetes, suboptimal control hypertension, admitted with chief complaint 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 He was diagnosed with hypertensive emergency and TIA, initial BP >200 sytsolic, he was started on a cardizem drip and then transitioned to po amlodipine, HCTZ and losartan which resulted in good control. Denied any active chest pain , shortness of breath. CT head unremarkable, CTA head and neck without acute ischemia, telemetry showing sinus rhythm EKG without ischemic or infarctive changes. Hba1c uncontrolled at 11, started on 12 U of lantus and metformin 500mg BID. 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 [place] [facility] [place] [facility] Physical Exam Narrative: EXAM NARRATIVE: GEN: Awake, alert and oriented, no acute distress CVS: S1S2 N RS: CTA B/L Abd: Soft, nt/nd , bs+ PRACTICE SPECIALIST: no focal neuro deficits Discharge Data Data Completed and Pending: Completed Studies During Hospitalization Category Date Time Status CT angio headneck * [id number] Urge nt Cat Scan 03/27/21 00:[address] head wo con* [id number] Urgent Cat Scan 03/26/21 21:57 Completed XR chest 1V hernandez ble [id number] Urgent Exams 03/26/21 21:57 Completed Labs from last 24 hours 03/27/21 03/27/21 03/27/21 11:19 06:50 04:08 WBC RBC Hgb Hct MCV MCH MCHC RDW Plt Count MPV Neut % (Auto) Lymph % (Auto) [place] % (Auto) Eos % (Auto) Baso % (Auto) Neut # (Auto) Lymph # (Auto) [place] # (Auto) Eos # (Auto) Baso # (Auto) Nucleated RBC % (a uto) Nucleated RBCs # Sodium Potassium Chloride Carbon Dioxide Anion Gap BUN Creatinine GFR Calculation Glucose POC Glucose 262 H 273 H Estimat Average Gl ucose Hemoglobin A1c Calculated Osmolal ity Calcium Total Bilirubin AST ALT Alkaline Phosphata se Troponin T Baselin e Troponin T 120 Min [place] Delta Troponin T Troponin T Hi Sens 6Hr 27.40 H Troponin T Hi Sens 6Hr Delta 4.40 Total Protein Albumin Globulin Triglycerides Cholesterol LDL Cholesterol, C alc HDL Cholesterol LDL/HDL Ratio Cholesterol/HDL Ra evy 03/27/21 03/26/21 03/26/21 01:30 23:51 23:51 WBC RBC Hgb Hct MCV MCH MCHC RDW Plt Count MPV Neut % (Auto) Lymph % (Auto) [place] % (Auto) Eos % (Auto) Baso % (Auto) Neut # (Auto) Lymph # (Auto) [place] # (Auto) Eos # (Auto) Baso # (Auto) Nucleated RBC % (a uto) Nucleated RBCs # Sodium Potassium Chloride Carbon Dioxide Anion Gap BUN Creatinine GFR Calculation Glucose POC Glucose 329 H Estimat Average Gl ucose Hemoglobin A1c Calculated Osmolal ity Calcium Total Bilirubin AST ALT Alkaline Phosphata se Troponin T Baselin e Troponin T 120 Min [place] 21.14 H Delta Troponin T -1.86 L Troponin T Hi Sens 6Hr Troponin T Hi Sens 6Hr Delta Total Protein Albumin Globulin Triglycerides 138 Cholesterol 127 LDL Cholesterol, C alc 26 L HDL Cholesterol 73 LDL/HDL Ratio 0.36 Cholesterol/HDL Ra evy 1.74 03/26/21 03/26/21 03/26/21 22:10 22:10 22:10 WBC RBC Hgb Hct MCV MCH MCHC RDW Plt Count MPV Neut % (Auto) Lymph % (Auto) [place] % (Auto) Eos % (Auto) Baso % (Auto) Neut # (Auto) Lymph # (Auto) [place] # (Auto) Eos # (Auto) Baso # (Auto) Nucleated RBC % (a uto) Nucleated RBCs # Sodium 134 L Potassium 4.3 Chloride 100 Carbon Dioxide 25 Anion Gap 13.3 BUN 12 Creatinine 0.8 GFR Calculation 101.1 Glucose 392 H POC Glucose Estimat Average Gl ucose 275 Hemoglobin A1c 11.2 H Calculated Osmolal ity 294 Calcium 8.6 Total Bilirubin 0.7 AST 24 ALT 30 Alkaline Phosphata se 118 Troponin T Baselin e 23 H Troponin T 120 Min [place] Delta Troponin T Troponin T Hi Sens 6Hr Troponin T Hi Sens 6Hr Delta Total Protein 6.7 Albumin 4.0 Globulin 2.7 Triglycerides Cholesterol LDL Cholesterol, C alc HDL Cholesterol LDL/HDL Ratio Cholesterol/HDL Ra evy 03/26/21 22:10 WBC 10.3 H RBC 5.83 H Hgb 17.5 H Hct 49.4 MCV 84.7 MCH 30.0 MCHC 35.4 RDW 12.7 Plt Count 195 MPV 11.5 H Neut % (Auto) 64.8 Lymph % (Auto) 26.8 [place] % (Auto) 5.3 Eos % (Auto) 1.5 Baso % (Auto) 0.5 Neut # (Auto) 6.67 Lymph # (Auto) 2.8 [place] # (Auto) 0.5 Eos # (Auto) 0.2 Baso # (Auto) 0.1 Nucleated RBC % (a uto) 0 Nucleated RBCs # 0.0 Sodium Potassium Chloride Carbon Dioxide Anion Gap BUN Creatinine GFR Calculation Glucose POC Glucose Estimat Average Gl ucose Hemoglobin A1c Calculated Osmolal ity Calcium Total Bilirubin AST ALT Alkaline Phosphata se Troponin T Baselin e Troponin T 120 Min [place] Delta Troponin T Troponin T Hi Sens 6Hr Troponin T Hi Sens 6Hr Delta Total Protein Albumin Globulin Triglycerides Cholesterol LDL Cholesterol, C alc HDL Cholesterol LDL/HDL Ratio Cholesterol/HDL Ra evy Vitals: Last Vital Signs Temp 98.1 F 03/27/21 03:41 Pulse 61 03/27/21 06:00 Resp 20 H 03/27/21 03:41 BP 150/92 03/27/21 09:00 Pulse Ox 96 03/27/21 03:41 Discharge Plan Discharge Patient Disposition: Home Condition: Stable Prescriptions: New losartan 50 mg Tablet 100 mg PO DAILY 30 Days Qty: 30 RF: 0 atorvastatin 40 mg Tablet 40 mg PO BEDTIME 30 Days Qty: 30 RF: 0 aspirin 81 mg Tablet,Delayed Release (Dr/Ec) 81 mg PO DAILY 30 Days Qty: 30 RF: 0 amlodipine 10 mg Tablet 10 mg PO DAILY 30 Days RF: 0 metformin 500 mg tablet 500 mg PO BID 30 Days Qty: 60 RF: 0 Lantus Solostar U-100 Insulin 100 unit/mL (3 mL) insulin pen 12 unit SUBCUT QPM Qty: 15 RF: 0 atorvastatin [Lipitor] 40 mg tablet 40 mg PO DAILY 30 Days Qty: 30 RF: 0 Discontinued Jardiance 10 mg tablet 10 mg PO DAILY 30 Days Qty: 30 RF: 2 Discharge Orders: Discharge Order (Routine); Ordered 03/27/21 Ordered By: Marilyn Luther Referrals: Joanna Zacarias FNP [Nurse Practitioner] - 04/02/21 1:20 pm (You have a hospital followup with GUADALUPE Girard at [facility] on April 02 at 1:20pm) Discharge Diet: Cardiac and Low Salt Discharge Activity: Resume usual activity Patient Instructions: Aspirin (By mouth), Amlodipine (By mouth), Losartan (By mouth), Metformin (By mouth), Atorvastatin (By mouth), Topical Barrier Preparations (On the skin), Insulin Glargine (Injection), Transient Ischemic Attack (DC), Opioid Safety Discharge Attestations Time Spent in Discharge Care*: greater than 30 min Quality Metrics Clinical Quality Measures During this hospital stay, did patient experience: None Coding Level of Care Code Acute Chg FW DC note Diagnoses Hypertensive emergency I16.1 Transient cerebral ischemia G45.9 Transient cerebral ischemia type: unspecified Hypertension I10 Hypertension type: unspecified Diabetes mellitus E11.9 Diabetes mellitus complication status: without complication Diabetes mellitus penitentiary insulin use: without intermodal dispatcher use Diabetes mellitus type: type 2
[2021-03-27 14:12] LABS: Glucose Point of Care 148 mg/dL (70-110)
--- NOTE | 2021-03-27 14:28 | CT_ITS ---
WS: [id number] CT HEAD TECHNIQUE: Noncontrast CT of the head obtained from the skullbase to the vertex. CLINICAL INFORMATION: doctors order COMPARISON: March 26, 2021 DLP: 928.[address] scans at [facility] use at least one of these dose optimization techniques: automat ed exposure control; mA and/or kV adjustment per patient size (includes targeted exams where dose is matched to clinical indication); or iterative reconstruction. FINDINGS: No evidence of intracranial hemorrhage or mass effect. Ventricular system and basal cisterns are mobley nt. Mild small vessel changes with moderate parenchymal volume loss. Chronic lacunar infarct left sal s. No extra-axial fluid collections. No evidence of mass or mass effect. Normal sinha-white differenti ation. Paranasal sinuses and mastoid air cells are well aerated. .Normal visualized soft tissues. CT/CT head wo con* [id number] IMPRESSION: 1. No evidence of intracranial hemorrhage or mass effect. 2. Mild small vessel changes. Moderate parenchymal volume loss. 3. Chronic lacunar infarct left ruby. 4. No acute intracranial findings.
--- NOTE | 2021-03-27 14:30 | PC.NURSE ---
Pts girlfriend called this nurse to pt room stating I think he is having another stroke. Pt was A&O x4, Pts pupils equal and reactive to light, corn detasseler equal and strong, Pt able to raise arms against resistance equally, Pt legs equal and strong able to lift legs equal, feet strong and equal against resistance. Pts speech clear and appropriate. VS stable. Pts finger stick glucose 145. notified.
--- NOTE | 2021-03-27 14:35 | PC.NURSE ---
This nurse was called to pts room. Pt stated I cant see I cant hardly see at all. Upon assessment pts pupils were equal. Pt blinked rapidly and moved head slightly back quickly with hand movement visual threat. Pt continued to say I cant see. notified. Order was given for stat CT of head.
--- NOTE | 2021-03-27 15:00 | PM.EVENT ---
Event Note Event Note: Patient was planned for discharge, however this was canceled when at around 2:30 PM he started complaining of sudden loss of vision in both eyes. States that he is only able to see the lower half of the faces, rest of it is just light. Also complaining of cramping and tingling sensation in his right leg. Stat CT head obtained. Dr. Chaparro consulted due to concerns for acute stroke.
--- NOTE | 2021-03-27 15:46 | PC.NURSE ---
lifestyle coordinator responded TPA initiated by metal control coordinator Pt in route to ICU.
--- NOTE | 2021-03-27 16:11 | PC.NURSE ---
recd from [facility] per bed with tpa. infusing, fixed income manager weak, but equal. pupils reactive
[2021-03-27] MEDS: ondansetron 2 mg/ML SDV 2 mL 4 MG IVP (16:19)
--- NOTE | 2021-03-27 16:32 | ECG_ITS ---
[facility] Test Date: 2021-03-27 Pat Name: Keven Gannon Department: Room: ICU09 Gender: Male Senior Program Planner: : [id number] Requested By: Marilyn Luther Order Number: [id number] Kimberly MD: Ruth Rodriguez M.D. Measurements Intervals [place] Rate: 61 P: 33 NC: 166 QRS: -15 QRSD: 105 T: 160 QT: 438 QTc: 444 Interpretive Statements SINUS RHYTHM LEFT VENTRICULAR HYPERTROPHY AND ST-T CHANGE [VOLTAGE CRITERIA PLUS ST/T ABNORMALITY] POSSIBLE SEPTAL MYOCARDIAL INFARCTION [30 ms Q WAVE IN V1/V2], OF INDETERMINATE AGE Compared to ECG 03/27/2021 05:53:26 Myocardial infarct finding now present Incomplete right bundle-branch block no longer present ST (T wave) deviation still present Electronically Signed On 03-27-2021 20:49:44 CDT by Ruth Rodriguez M.D. [email or web address]
--- NOTE | 2021-03-27 16:34 | PC.NURSE ---
note what appears to be st depression in lead 2.
--- NOTE | 2021-03-27 16:50 | P.PNCC_ITS ---
Stroke Alert Activation ED Arrival Date: 03/27/21 ED Arrival Time: 15:05 ED Physican at Bedside: 15:00 Last Known Normal/at Baseline: < 1 hour ago Other Last Known Well Infomation: Dr. Luther called me about this 51-year-old man for possible stroke. The nurse, Levy, was getting ready to discharge the patient. The patient was up walking around and moving about normally when suddenly he complained that he could not see anything. Dr. Luther came to the bedside immediately and examined the patient. She found an altitudinal visual defect and no focal motor findings. I came directly to the [facility] and by that time the patient was complaining of left-sided numbness. Then he said he could not move his left arm. He was not cooperative for visual field testing and kept his eyes directed straight ahead but he was able to fully move his eyes. He had decreased strength in the left leg and could not lift either of his legs from the bed. He has no history of functional symptoms in the past. He had a previous pontine stroke as is evident by his CAT scan, which was performed stat as soon as the symptoms began today. I reviewed the story of his presentation yesterday from the patient's girlfriend. I talked with Dr. Luther and with the nurse and with the patient's girlfriend and it is clear that he was neurologically normal for more than 24 hours before the symptoms began. Although I am concerned that this may be a functional neurologic event, based on the [place] [employer] recommendation I think the patient should be treated with TPA. He has multiple risk factors including diabetes, hypertension, previous stroke, hyperlipidemia, and so TPA was initiated right at 1 hour from onset of symptoms. Stroke Alert Activated by: Stroke Alert Activation Time: 15:29 Stroke MD @ Bedside Time: 15:15 NIH Stroke Scale Time: 15:15 NIH stroke score NIHSS: Level Of Consciousness - 1a: 0 Level Of Consciousness Questions - 1b: Both Correct Level Of Consciousness Commands - 1c: Both Correct Best Gaze - 2: Normal Visual Isaacs - 3: Partial Hemianopia Facial Palsy - 4: Normal Motor Arm Right - 5: No Drift Motor Arm Left - 5: Drift Motor Leg Right - 6: Effort Against [place] Motor Leg Left - 6: Effort Against [place] Limb Ataxia - 7: Absent Sensory - 8: Severe To Total Loss Best Language - 9: No Aphasia Dysarthia - 10: Normal Extinction And Inattention - 11: 0 Score: Total Score: 8 Stroke Alert Data/Treatment Time to CT of Head: 14:45 CT Results Time: 15:05 CT Impression: Old left pontine infarct Stroke Risk Factors: hyperlipidemia, hypertension, diabetes mellitus and depression tPA Started Time: tPA Started - Time: 15:30 tPA Admin Prior to Arrival: No Patient & Family Educated on: Cause of Stroke, Risk Factors, Treament Plan and tPA Risks/Benefits Other Information: This gentleman had multiple features of a nonphysiologic problem. He was wooden, stiff in the bed and would not move his eyes initially, although eventually he was able to fix and follow. His visual isaacs varied. He would not move his left side well. My concern was that his symptoms from yesterday of left hemianesthesia and today's left hemianesthesia with visual f ield deficit conform to posterior circulation ischemia and he has an old lacunar infarct in the left ruby. For that reason I felt that he should be treated with TPA and we can sort out whether he is actually having ischemia later. I reviewed his CT scan of the head. I reviewed his CT angiogram from yesterday. At this point the patient's blood pressure should be kept 180/110 or less based on TPA protocol. Critical Care Time Critical Care Time: 30 - 74 mins A&P Assessment and plan (1) Posterior circulation stroke: This gentleman presented with left hemianesthesia suggestive of ischemia in the thalamus. His symptoms cleared. His blood pressure was treated aggressively but fortunately, he survived that experience and his symptoms completely resolved until this afternoon when he had witnessed onset of symptoms at approximately 1430. His initial symptoms consisted of a visual field cut, altitudinal, which can be seen with posterior circulation ischemia. Variable findings can also be seen with tip of the basilar and this gentleman has clear severe anxiety disorder that interfered with his exam. He was treated with TPA. The solution coordinator participated and helped to get him treated rapidly within an hour of onset of symptoms and he was transferred to ICU. I conferred with Dr. Marilyn Luther MD throughout this process. Status: Acute Coding Level of Care Code Acute Flexible Nanny for Dylon Sylvester Diagnoses Posterior circulation stroke I63.50
[2021-03-27 17:34] LABS: Glucose Point of Care 200 mg/dL (70-110)
--- NOTE | 2021-03-27 17:42 | PC.NURSE ---
much more alert, ready for dinner. passed nursing dysphagia test.
--- NOTE | 2021-03-27 18:01 | CTR_ITS ---
PROCEDURE INFORMATION: Exam: CT Head Without Contrast Exam date and time: 03/27/2021 6:08 PM Age: 51 years old Clinical indication: Speech disturbance and weakness, extremity; Bilateral; Patient HX: Slurred speech, right arm numbness, post tpa; Additional info: Slurred speech, weakness TECHNIQUE: Imaging protocol: Computed tomography of the head without contrast. Radiation optimization: All CT scans at this facility use at least one of these dose optimization techniques: automated exposure control; mA and/or kV adjustment per patient size (includes targeted exams where dose is matched to clinical indication); or iterative reconstruction. Other technique: STROKE PROTOCOL was implemented. COMPARISON: CT head wo con* [id number] 03/27/2021 3:01 PM RADIATION DOSE METRICS: Total DLP (mGy-cm): 862.17 FINDINGS: Brain: Acute pontine hemorrhage, approximately 1 cm in diameter centered just to the left of midline. Small old pontine lacunar infarct is re-identified. No edema or mass effect. No midline shift. Cerebral ventricles: No hydrocephalus or intraventricular hemorrhage. Bones/joints: Unremarkable. No acute fracture. Paranasal sinuses: Visualized sinuses are unremarkable. No fluid levels. Mastoid air cells: Unremarkable. Soft tissues: Unremarkable. CT/CT head wo con* [id number] IMPRESSION: Acute pontine hemorrhage. ASSESSMENT: ASPECTS ([place] Stroke Program Early CT Score) is 10. Radiation Dose CTDIVOL = (mGy): DLP = 862.17 (mGy-cm)
--- NOTE | 2021-03-27 18:10 | PC.NURSE ---
c/o vision changes. identified 2 fingers as 4. b/p up, to ct stat. will monitor b/p on return. left eye noted to be blinking, speech slurred, did identify time on clock on wall correctly.
[2021-03-27] MEDS: labetalol 5 mg/mL SDV 20mL 20 MG IVP (18:20)
[2021-03-27 18:54] LABS: Hemoglobin 17.5 g/dL (11.7-16.6); Mean Corpuscular Hemoglobin 29.8 pg (28.0-34.0); Mean Corpuscular Volume 85.2 fL (80-94); Mean Platelet Volume 11.2 fL (7.4-10.4); Platelet Count 218 10^3/cmm (130-400); Red Blood Count 5.87 10^6/uL (4.1-5.3); Red Cell Distribution Width 12.7 % (12.1-15.1); White Blood Count 19.3 10^3/uL (4.0-10.0)
--- NOTE | 2021-03-27 18:59 | P.TS_ITS ---
Transfer Summary Providers Date of Admission: 03/26/21 23:21 Date of Discharge: 03/27/21 Attending Provider at Admission: Meaghan Arguelles MD Attending Provider at Transfer: Marilyn Luther MD Anticipated Date of Transfer: Anticipated date of transfer: 03/27/21 Receiving Facility & Provider: Receiving Provider: [] Receiving facility: [] Diagnoses at Discharge Discharge Diagnosis (1) Hypertensive emergency: Status: Acute (2) Transient cerebral ischemia: Status: Acute Qualifiers: Transient cerebral ischemia type: unspecified Qualified Code(s): G45.9 - Transient cerebral ischemic attack, unspecified (3) Hypertension: Status: Acute Qualifiers: Hypertension type: unspecified Qualified Code(s): I10 - Essential (primary) hypertension (4) Diabetes mellitus: Status: Chronic Qualifiers: Diabetes mellitus type: type 2 Diabetes mellitus long term care administrator insulin use: without long term care administrator use Diabetes mellitus complication status: without complication Qualified Code(s): E11.9 - Type 2 diabetes mellitus without complications Reason for Visit Reason for Visit: FELT LIKE LIGHTENING GOING DOWN L FT, L ARM NUMB Hospital Course Hospital Course 51 year old male who has history of uncontrolled type 2 diabetes, not currently on any medication, 1c 11, suboptimal control hypertension, not compliant with olmesartan, admitted on 03/26 with chief complaint of transient left-sided numbness affecting his upper and lower extremities, lasting 35 minutes in the afternoon of 03/26, started [place] farm 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 Ct head at 10pm on 03/26 showed no acute infarct or hemorrhage, CTA head and neck without large vessel stenosis or occlusion. He was diagnosed with hypertensive emergency and TIA, initial BP >200 sytsolic, he was started on a cardene drip overnight and then transitioned to po amlodipine 10mg, HCTZ 12.5mg po daily and losartan 100mg daily which resulted in systolic BP coming down to 170 by the afternoon of 03/27. He was planned to be discharged today. However prior to discharge at 2:30 pm he started to c/o sudden loss of vision described as inability to see top half of people's faces, and able to see only light in this part. There were no focal motor deficits at this time. 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 His Neurology was consulted, due to concern for acute stroke, by the time of neurology assessment he was c/o left sided numbness and could not move his left leg. He received tPA at 3:40 pm. At 6Pm, he then developed new dysarthria and rigth sided hemiplegia. 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 10 U of cryoprecipitate has been ordered for transfusion. [facility] was called and patient is being transferred for acute pontine hemorrhage, need for neuro ICU, neurology and neurosurgical care. He is being intubated by anesthesia for airway protection and being transferred via air evac. Physical Exam Narrative: EXAM NARRATIVE: GEN: Awake, alert and oriented, in moderate distress due to right sided spasms, nausea, retching CVS: S1S2 N RS: CTA B/L Abd: Soft, nt/nd , bs+ VEST TAILOR: dysarthria+, rigth facial deviation ,right sided hemiplegia, for detailed exam, please see neurology note TS Data Data Completed and Pending: Completed Studies During Hospitalization Category Date Time Status CT angio headneck * 88223/21688 Urge nt Cat Scan 03/27/21 00:[address] head wo con* 7 0450 Routine Cat Scan 03/27/21 18:[address] head wo con* 7 0450 Stat Cat Scan 03/27/21 14:[address] head wo con* 7 0450 Urgent Cat Scan 03/26/21 21:57 Completed XR chest 1V hernandez ble [id number] Urgent Exams 03/26/21 21:57 Completed Pending at discharge Category Date Time Status CBC Manual Dif [C omplete Blood Coun t w/Man Dif] Stat Lab 03/27/21 18:31 Ordered CMP [Comprehensiv e Metabolic Panel] Stat Lab 03/27/21 18:30 Ordered Fibrinogen Stat Lab 03/27/21 18:31 Ordered Hemoglobin A1C AM LABS Lab 03/28/21 04:00 Ordered Lipid Panel AM LA BS Lab 03/28/21 04:00 Ordered Magnesium Stat Lab 03/27/21 18:30 Ordered PTT [Partial Thro mboplastin Time] S tat Lab 03/27/21 18:31 Ordered Prothrombin Time INR Stat Lab 03/27/21 18:31 Ordered Type and Screen S tat Lab 03/27/21 18:19 Ordered Labs from last 24 hours 03/27/21 03/27/21 03/27/21 18:48 18:48 18:48 WBC 19.3 H RBC 5.87 H Hgb 17.5 H Hct 50.0 MCV 85.2 MCH 29.8 MCHC 35.0 RDW 12.7 Plt Count 218 MPV 11.2 H Neut % (Auto) Lymph % (Auto) [place] % (Auto) Eos % (Auto) Baso % (Auto) Neut # (Auto) Lymph # (Auto) [place] # (Auto) Eos # (Auto) Baso # (Auto) Nucleated RBC % (a uto) Total Counted Pending Atypical Lymphs % Pending Segmented Neutroph ils Pending Band Neutrophils Pending Lymphocytes (Manua l) Pending Monocytes (Manual) Pending Eosinophils (Manua l) Pending Basophils (Manual) Pending Nucleated RBCs # Platelet Estimate Pending PT Pending INR Pending APTT Pending Fibrinogen Pending Sodium Pending Potassium Pending Chloride Pending Carbon Dioxide Pending Anion Gap Pending BUN Pending Creatinine Pending GFR Calculation Pending Glucose Pending POC Glucose Estimat Average Gl ucose Hemoglobin A1c Calculated Osmolal ity Pending Calcium Pending Magnesium Pending Total Bilirubin Pending AST Pending ALT Pending Alkaline Phosphata se Pending Troponin T Baselin e Troponin T 120 Min [place] Delta Troponin T Troponin T Hi Sens 6Hr Troponin T Hi Sens 6Hr Delta Total Protein Pending Albumin Pending Globulin Pending Triglycerides Cholesterol LDL Cholesterol, C alc HDL Cholesterol LDL/HDL Ratio Cholesterol/HDL Ra evy 03/27/21 03/27/21 03/27/21 17:30 14:08 11:19 WBC RBC Hgb Hct MCV MCH MCHC RDW Plt Count MPV Neut % (Auto) Lymph % (Auto) [place] % (Auto) Eos % (Auto) Baso % (Auto) Neut # (Auto) Lymph # (Auto) [place] # (Auto) Eos # (Auto) Baso # (Auto) Nucleated RBC % (a uto) Total Counted Atypical Lymphs % Segmented Neutroph ils Band Neutrophils Lymphocytes (Manua l) Monocytes (Manual) Eosinophils (Manua l) Basophils (Manual) Nucleated RBCs # Platelet Estimate PT INR APTT Fibrinogen Sodium Potassium Chloride Carbon Dioxide Anion Gap BUN Creatinine GFR Calculation Glucose POC Glucose 200 H 148 H 262 H Estimat Average Gl ucose Hemoglobin A1c Calculated Osmolal ity Calcium Magnesium Total Bilirubin AST ALT Alkaline Phosphata se Troponin T Baselin e Troponin T 120 Min [place] Delta Troponin T Troponin T Hi Sens 6Hr Troponin T Hi Sens 6Hr Delta Total Protein Albumin Globulin Triglycerides Cholesterol LDL Cholesterol, C alc HDL Cholesterol LDL/HDL Ratio Cholesterol/HDL Ra evy 03/27/21 03/27/21 03/27/21 06:50 04:08 01:30 WBC RBC Hgb Hct MCV MCH MCHC RDW Plt Count MPV Neut % (Auto) Lymph % (Auto) [place] % (Auto) Eos % (Auto) Baso % (Auto) Neut # (Auto) Lymph # (Auto) [place] # (Auto) Eos # (Auto) Baso # (Auto) Nucleated RBC % (a uto) Total Counted Atypical Lymphs % Segmented Neutroph ils Band Neutrophils Lymphocytes (Manua l) Monocytes (Manual) Eosinophils (Manua l) Basophils (Manual) Nucleated RBCs # Platelet Estimate PT INR APTT Fibrinogen Sodium Potassium Chloride Carbon Dioxide Anion Gap BUN Creatinine GFR Calculation Glucose POC Glucose 273 H 329 H Estimat Average Gl ucose Hemoglobin A1c Calculated Osmolal ity Calcium Magnesium Total Bilirubin AST ALT Alkaline Phosphata se Troponin T Baselin e Troponin T 120 Min [place] Delta Troponin T Troponin T Hi Sens 6Hr 27.40 H Troponin T Hi Sens 6Hr Delta 4.40 Total Protein Albumin Globulin Triglycerides Cholesterol LDL Cholesterol, C alc HDL Cholesterol LDL/HDL Ratio Cholesterol/HDL Ra evy 03/26/21 03/26/21 03/26/21 23:51 23:51 22:10 WBC RBC Hgb Hct MCV MCH MCHC RDW Plt Count MPV Neut % (Auto) Lymph % (Auto) [place] % (Auto) Eos % (Auto) Baso % (Auto) Neut # (Auto) Lymph # (Auto) [place] # (Auto) Eos # (Auto) Baso # (Auto) Nucleated RBC % (a uto) Total Counted Atypical Lymphs % Segmented Neutroph ils Band Neutrophils Lymphocytes (Manua l) Monocytes (Manual) Eosinophils (Manua l) Basophils (Manual) Nucleated RBCs # Platelet Estimate PT INR APTT Fibrinogen Sodium Potassium Chloride Carbon Dioxide Anion Gap BUN Creatinine GFR Calculation Glucose POC Glucose Estimat Average Gl ucose 275 Hemoglobin A1c 11.2 H Calculated Osmolal ity Calcium Magnesium Total Bilirubin AST ALT Alkaline Phosphata se Troponin T Baselin e Troponin T 120 Min [place] 21.14 H Delta Troponin T -1.86 L Troponin T Hi Sens 6Hr Troponin T Hi Sens 6Hr Delta Total Protein Albumin Globulin Triglycerides 138 Cholesterol 127 LDL Cholesterol, C alc 26 L HDL Cholesterol 73 LDL/HDL Ratio 0.36 Cholesterol/HDL Ra evy 1.74 03/26/21 03/26/21 03/26/21 22:10 22:10 22:10 WBC 10.3 H RBC 5.83 H Hgb 17.5 H Hct 49.4 MCV 84.7 MCH 30.0 MCHC 35.4 RDW 12.7 Plt Count 195 MPV 11.5 H Neut % (Auto) 64.8 Lymph % (Auto) 26.8 [place] % (Auto) 5.3 Eos % (Auto) 1.5 Baso % (Auto) 0.5 Neut # (Auto) 6.67 Lymph # (Auto) 2.8 [place] # (Auto) 0.5 Eos # (Auto) 0.2 Baso # (Auto) 0.1 Nucleated RBC % (a uto) 0 Total Counted Atypical Lymphs % Segmented Neutroph ils Band Neutrophils Lymphocytes (Manua l) Monocytes (Manual) Eosinophils (Manua l) Basophils (Manual) Nucleated RBCs # 0.0 Platelet Estimate PT INR APTT Fibrinogen Sodium 134 L Potassium 4.3 Chloride 100 Carbon Dioxide 25 Anion Gap 13.3 BUN 12 Creatinine 0.8 GFR Calculation 101.1 Glucose 392 H POC Glucose Estimat Average Gl ucose Hemoglobin A1c Calculated Osmolal ity 294 Calcium 8.6 Magnesium Total Bilirubin 0.7 AST 24 ALT 30 Alkaline Phosphata se 118 Troponin T Baselin e 23 H Troponin T 120 Min [place] Delta Troponin T Troponin T Hi Sens 6Hr Troponin T Hi Sens 6Hr Delta Total Protein 6.7 Albumin 4.0 Globulin 2.7 Triglycerides Cholesterol LDL Cholesterol, C alc HDL Cholesterol LDL/HDL Ratio Cholesterol/HDL Ra evy Addt'l Data from Hospital Stay: Laboratory Results WBC 19.3 10^3/uL (4.0 -10.0) H 03/27/21 18:48 RBC 5.87 10^6/uL (4.1 -5.3) H 03/27/21 18:48 Hgb 17.5 g/dL (11.7-1 6.6) H 03/27/21 18:48 Hct 50.0 % (42.0-52.0 ) 03/27/21 18:48 MCV 85.2 fL (80-94) 03/27/21 18:48 MCH 29.8 pg (28.0-34. 0) 03/27/21 18:48 MCHC 35.0 g/dL (30.0-3 6.0) 03/27/21 18:48 RDW 12.7 % (12.1-15.1 ) 03/27/21 18:48 Plt Count 218 10^3/cmm (130 -400) 03/27/21 18:48 MPV 11.2 fL (7.4-10.4 ) H 03/27/21 18:48 Neut % (Auto) 64.8 % 03/26/21 22:10 Lymph % (Auto) 26.8 % 03/26/21 22:10 [place] % (Auto) 5.3 % 03/26/21 22:10 Eos % (Auto) 1.5 % 03/26/21 22:10 Baso % (Auto) 0.5 % 03/26/21 22:10 Neut # (Auto) 6.67 10^3/uL (1.8 -7.7) 03/26/21 22:10 Lymph # (Auto) 2.8 10^3/uL (0.8- 4.8) 03/26/21 22:10 [place] # (Auto) 0.5 10^3/uL (0.2- 0.9) 03/26/21 22:10 Eos # (Auto) 0.2 10^3/uL (0.0- 0.8) 03/26/21 22:10 Baso # (Auto) 0.1 10^3/uL (0.0- 0.1) 03/26/21 22:10 Nucleated RBC % (a uto) 0 % 03/26/21 22:10 Nucleated RBCs # 0.0 /100WBC 03/26/21 22:10 PT 16.00 SECONDS (12 .1-14.9) H 03/27/21 18:48 INR 1.25 (0.8-1.2) H 03/27/21 18:48 APTT 29.6 SECONDS (23. 9-36.7) 03/27/21 18:48 Fibrinogen 201 mg/dL (174-49 8) 03/27/21 18:48 Sodium 133 mmol/L (136-1 45) L 03/27/21 18:48 Potassium 3.7 mmol/L (3.5-5 .1) 03/27/21 18:48 Chloride 96 mmol/L (98-107 ) L 03/27/21 18:48 Carbon Dioxide 25 mmol/L (22-29) 03/27/21 18:48 Anion Gap 15.7 (5-19) 03/27/21 18:48 BUN 17 mg/dL (6-20) 03/27/21 18:48 Creatinine 0.8 mg/dL (0.7-1. 2) 03/27/21 18:48 GFR Calculation 101.1 mL/min (90- 130) 03/27/21 18:48 Glucose 274 mg/dL (65-115 ) H 03/27/21 18:48 POC Glucose 200 mg/dL (70-110 ) H 03/27/21 17:30 Estimat Average Gl ucose 275 03/26/21 22:10 Hemoglobin A1c 11.2 % (4.0-6.0) H 03/26/21 22:10 Calculated Osmolal ity 287 mOsm/kg (285- 295) 03/27/21 18:48 Calcium 8.8 mg/dL (8.5-10 .5) 03/27/21 18:48 Magnesium 1.7 mg/dL (1.7-2. 3) 03/27/21 18:48 Total Bilirubin 1.0 mg/dL (0.15-1 .2) 03/27/21 18:48 AST 30 U/L (0-40) 03/27/21 18:48 ALT 33 U/L (0-41) 03/27/21 18:48 Alkaline Phosphata se 106 IU/L (40-130) 03/27/21 18:48 Troponin T Baselin e 23 ng/L (0-15) H 03/26/21 22:10 Troponin T 120 Min [place] 21.14 ng/L (0-15) H 03/26/21 23:51 Delta Troponin T -1.86 ABS# (0-10) L 03/26/21 23:51 Troponin T Hi Sens 6Hr 27.40 ng/L (0-15) H 03/27/21 04:08 Troponin T Hi Sens 6Hr Delta 4.40 ng/L (0-12) 03/27/21 04:08 Total Protein 6.9 g/dL (6.6-8.7 ) 03/27/21 18:48 Albumin 3.9 g/dL (3.5-5.2 ) 03/27/21 18:48 Globulin 3.0 g/dL (1.3-4.6 ) 03/27/21 18:48 Triglycerides 138 mg/dL (0-150) 03/26/21 23:51 Cholesterol 127 mg/dL (0-200) 03/26/21 23:51 LDL Cholesterol, C alc 26 mg/dL (50-129) L 03/26/21 23:51 HDL Cholesterol 73 mg/dL (60-100) 03/26/21 23:51 LDL/HDL Ratio 0.36 RATIO (0.00- 3.22) 03/26/21 23:51 Cholesterol/HDL Ra evy 1.74 mg/dL (1.0-5 .00) 03/26/21 23:51 Impressions Fibrinogen : 200 at 1848 Chest X-Ray 03/26/21 21:57 IMPRESSION: No acute disease. Head/Neck CTA 03/27/21 00:28 IMPRESSION: 1. No large vessel stenosis or occlusion. 2. 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 3. Right vertebral artery terminates in the PICA without joining the basilar artery. REFERENCES: NASCET CRITERIA. The degree of internal carotid artery stenosis is based on NASCET criteria. Normal is no stenosis. Mild is less than 50% stenosis. Moderate is 50-69% stenosis. Severe is 70% to 99% stenosis. Total occlusion is no detectable patent lumen. Radiation Dose CTDIVOL = (mGy): DLP = 2706.75~2706.75 (mGy-cm) Head CT 03/27/21 18:01 IMPRESSION: Acute pontine hemorrhage. ASSESSMENT: ASPECTS ([place] Stroke Program Early CT Score) is 10. Radiation Dose CTDIVOL = (mGy): DLP = 862.17 (mGy-cm) ADDENDUM: 03/27/21 4201 THIS REPORT CONTAINS FINDINGS THAT MAY BE CRITICAL TO PATIENT CARE. The findings were verbally communicated via telephone conference with Dr. Chaparro at 6:37 PM CDT on 03/27/2021. The findings were acknowledged and understood. Radiation Dose CTDIVOL = (mGy): DLP = 862.17 (mGy-cm) Vitals: Last Vital Signs Temp 97.9 F 03/27/21 08:00 Pulse 64 03/27/21 17:03 Resp 20 H 03/27/21 17:03 BP 151/85 03/27/21 17:03 Pulse Ox 95 03/27/21 16:35 TS Medications Medications Home Medications empagliflozin 10 mg tablet 10 mg PO DAILY 30 Days #30 tab 09/10/20 [Rx Confirmed 03/27/21] amlodipine 10 mg PO DAILY 30 Days tab 03/27/21 [Rx] aspirin 81 mg PO DAILY 30 Days #30 tab 03/27/21 [Rx] atorvastatin 40 mg PO BEDTIME 30 Days #30 tab 03/27/21 [Rx] insulin glargine [Lantus Solostar U-100 Insulin] 12 unit SUBCUT QPM #15 ml 03/27/21 [Rx] losartan 100 mg PO DAILY 30 Days #30 tab 03/27/21 [Rx] metformin 500 mg PO BID 30 Days #60 tab 03/27/21 [Rx] Active Medications Acetaminophen (Acetaminophen 325 Mg Tablet) 325 - 650 mg PO Q4H PRN PRN Reason: MILD PAIN OR INCREASE TEMP Amlodipine Besylate (Amlodipine 10 Mg Tablet) 10 mg PO DAILY MAEVE Last Admin: 03/27/21 08:59 Dose: 10 mg Documented by: Atorvastatin Calcium (Atorvastatin 40 Mg Tablet) 20 mg PO BEDTIME MAEVE Dextrose (Dextrose 50% Syringe 50 Ml) 25 ml IVP ONCE PRN; Protocol PRN Reason: hypoglycemia protocol Dextrose (Dextrose 50% Syringe 50 Ml) 50 ml IVP PRN PRN; Protocol PRN Reason: hypoglycemia protocol Glucagon (Glucagon 1 Mg/Ml Inj 1 Ml) 1 mg IM ONCE PRN; Protocol PRN Reason: Adult Acute Hypoglycemia Prot. Hydrochlorothiazide (Hydrochlorothiazide 25 Mg Tablet) 12.5 mg PO DAILY MAVEE Last Admin: 03/27/21 08:58 Dose: 12.5 mg Documented by: Dextrose (D5w) 500 mls @ 100 mls/hr IV ONCE PRN; Protocol PRN Reason: Adult Acute Hypoglycemia Prot Nicardipine/Sodium Chloride (Cardene) 20 mg in 200 mls @ 0 mls/hr IV .Q0M MAEVE; Protocol Insulin Aspart (Insulin Aspart 100 Unit/1 Ml) 0 unit SUBCUT WM&BEDTIME MAEVE; Protocol Last Admin: 03/27/21 17:39 Dose: 6 unit Documented by: Losartan Potassium (Losartan 50 Mg Tablet) 100 mg PO DAILY MAEVE Last Admin: 03/27/21 09:00 Dose: 100 mg Documented by: Ondansetron HCl (Ondansetron 2 Mg/Ml Sdv 2 Ml) 4 mg IVP Q4H PRN PRN Reason: NAUSEA AND VOMITING Ondansetron HCl (Ondansetron 2 Mg/Ml Sdv 2 Ml) 4 mg IVP Q4H PRN PRN Reason: NAUSEA AND VOMITING Discharge Plan Discharge Patient Disposition: Home Condition: Stable Prescriptions: New losartan 50 mg Tablet 100 mg PO DAILY 30 Days Qty: 30 RF: 0 atorvastatin 40 mg Tablet 40 mg PO BEDTIME 30 Days Qty: 30 RF: 0 aspirin 81 mg Tablet,Delayed Release (Dr/Ec) 81 mg PO DAILY 30 Days Qty: 30 RF: 0 amlodipine 10 mg Tablet 10 mg PO DAILY 30 Days RF: 0 metformin 500 mg tablet 500 mg PO BID 30 Days Qty: 60 RF: 0 Lantus Solostar U-100 Insulin 100 unit/mL (3 mL) insulin pen 12 unit SUBCUT QPM Qty: 15 RF: 0 atorvastatin [Lipitor] 40 mg tablet 40 mg PO DAILY 30 Days Qty: 30 RF: 0 Discontinued Jardiance 10 mg tablet 10 mg PO DAILY 30 Days Qty: 30 RF: 2 Discharge Orders: Discharge Order (Routine); Ordered 03/27/21 Ordered By: Marilyn Luther Referrals: Joanna Zacarias FNP [Nurse Practitioner] - 04/02/21 1:20 pm (You have a hospital followup with GUADALUPE Girard at [facility] on April 02 at 1:20pm) Discharge Diet: Cardiac and Low Salt Discharge Activity: Resume usual activity Patient Instructions: Aspirin (By mouth), Amlodipine (By mouth), Losartan (By mouth), Metformin (By mouth), Atorvastatin (By mouth), Topical Barrier Preparations (On the skin), Insulin Glargine (Injection), Transient Ischemic Attack (DC), Opioid Safety Transfer Attestations Time Spent in Transfer Care*: critical care time Critical Care Time (min): 70 Status at Transfer: Cognitive status at transfer: cognitively intact , Behavioral status at transfer: cooperative , Functional status at transfer: other Overall status at transfer: patient is not back to baseline Quality Metrics Clinical Quality Measures: During this hospital stay, did patient experience: Stroke Contraindication to Antithrombotic: Antithrombotic prescribed Contraindication to Anticoagulation: Patient transfer Contraindication to Statin: Statin prescribed Contraindication to tPA: tPA given Coding Level of Care Code Acute 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
[2021-03-27 19:03] LABS: INR 1.25 (0.8-1.2)
[2021-03-27] MEDS: LORazepam 2 mg/mL INJ 1 mL IVP ×2 (19:03→22:04)
[2021-03-27 19:04] LABS: Partial Thromboplastin Time 29.6 SECONDS (23.9-36.7)
[2021-03-27 19:06] LABS: Fibrinogen 201 mg/dL (174-498)
--- NOTE | 2021-03-27 19:10 | P.MISC_ITS ---
Miscellaneous Note Purpose of Documentation: Neurologic progress report Note: I was called to see this patient at 3:00 this afternoon because he had developed transient visual dysfunction. By the time I arrived he was complaining of left-sided numbness. He was able to stand up but he had weakness of his legs and felt like he could not stand (though he did). He had transient findings in different locations and I was concerned that he was having a posterior circulation stroke. I confirmed by reviewing material from his girlfriend Stephanie, from the patient himself, from his patient care nurse Levy who had been taking care of him all day that he had 30 minutes of transient left hemianesthesia yesterday evening with complete resolution of symptoms and no further symptoms until his visual dysfunction that began at 230 this afternoon. He was known to be neurologically normal at 230 when he was walking around the room, talking with the nurse and having his belongings put together for discharge. He received TPA bolus an hour after onset of symptoms. I was called by the hereditary cancer program coordinator at 612 because the patient developed sudden onset of right hemiplegia and was taken back to CAT scan. Mr. Mascorro could see a stroke on the CAT scan and called me to come back and evaluate the patient. On arrival I found that the patient had full eye movements and normal speech. He had intact visual isaacs. He had a right hemiplegia with intermittent spasms on the right. He had numbness to touch on the right side. His left side was normal including normal motor function on the left and sensory function. He was nauseated and intermittently vomiting. His CT scan of the head shows a pontine hemorrhage just inferior to his old lacunar stroke in the left mid ruby. His blood pressure currently is mildly elevated with 1 60-1 70 systolic. He is on a Cardene drip from Dr. Lutehr. He is in the process of receiving 10 units of cryoprecipitate which is not yet thawed but he has another IV started and the cryoprecipitate will be given as soon as it thaws out. The patient agreed to be transferred to [place]. I talked with Dr. Baljeet Andrews who agrees to accept the patient and agreed with the plan for cryoprecipitate. I have talked with the patient,, his significant other Stephanie, his mother and father and reviewed the CT findings including images. I talked with the patient. He is very uncomfortable because of right sided spasms. In the last 60 minutes since I arrived in ICU, he has developed dysarthria. His speech is intelligible but this is a new finding. His breathing is good but he is still nauseated despite Zofran and he agrees to be intubated and in fact is looking forward to it because he is so uncomfortable. Anesthesia is in the process of intubating him now. We plan to transfer by air. Dr. Luther and I have been at the patient's bedside for more than an hour. We will transfer him as soon as a bed is available and he is stable.
[2021-03-27 19:12] LABS: Alanine Aminotransferase 33 U/L (0-41); Albumin Level 3.9 g/dL (3.5-5.2); Alkaline Phosphatase 106 IU/L (40-130); Anion Gap 15.7 (5-19); Aspartate Amino Transferase 30 U/L (0-40); Blood Urea Nitrogen 17 mg/dL (6-20); Calcium 8.8 mg/dL (8.5-10.5); Carbon Dioxide 25 mmol/L (22-29); Chloride 96 mmol/L (98-107); Glomerular Filtration Rate 101.1 mL/min (90-130); Glucose 274 mg/dL (65-115); Magnesium 1.7 mg/dL (1.7-2.3); Osmolality Calculated 287 mOsm/kg (285-295); Potassium 3.7 mmol/L (3.5-5.1); Sodium 133 mmol/L (136-145); Total Protein 6.9 g/dL (6.6-8.7)
[2021-03-27] MEDS: rocuronium 10 mg/mL INJ 5mL 50 MG IV (19:19)
--- NOTE | 2021-03-27 19:28 | XRR_ITS ---
PROCEDURE INFORMATION: Exam: XR Chest Exam date and time: 03/27/2021 7:31 PM Age: 51 years old Clinical indication: Device placement; Ett placement (vent status); Additional info: Et tube placement TECHNIQUE: Imaging protocol: XR of the chest. Views: 1 view. COMPARISON: CR (CHEST, ) 03/26/2021 9:56 PM FINDINGS: Tubes, catheters and devices: The endotracheal tube is 2.6 cm above nithin. NG tube in the proximal gastric body. Lungs: Lungs are decreased in volume. Mild infrahilar atelectasis changes. No focal consolidation. No vascular dilation. Pleural spaces: Unremarkable. No pleural effusion. No pneumothorax. Heart/Mediastinum: Unremarkable. No cardiomegaly. Bones/joints: Unremarkable. XR/XR chest 1V portable [id number] IMPRESSION: Satisfactory endotracheal tube position.
[2021-03-27 19:39] LABS: Absolute Neutrophil 16.4 10^3/cmm (1.4-6.5); Absolute Segmented Neutrophil 16.4 10/cmm (1.6-7.1); Eosinophils 0 %; Lymphocytes 7 %; Lymphocytes Absolute 2.3 10^3/cmm (1.2-3.4); Monocytes Absolute 0.6 10^3/cmm (0.1-0.6); Platelet Estimate Normal (Normal); Segmented Neutrophils 85 %; Total Cells Counted 100 (0-100)
--- NOTE | 2021-03-27 19:45 | PC.NURSE ---
Addendum entered by Alfredo Mascorro RN 03/27/21 20:14: my note cut out in the middle of me writing it. A formal NIHSS was not done at this time because I was able to see a hemorrhage on the CT and that changed treatment plan. See Dr. Chaparro's note for neuro assessment. Original Note: Patient was initially complaining of left sided sensation changes when I had seen him (1530s), was yawning, complained of vision changes, mild dysarthria. For this tPA was ordered and given at 1542 by me, witnessed by Ivone Novak RN. I was called at 1800 by ICU charge, Milka, because patient had a change in neuro status. Patient immediately taken for STAT HCT. I came to CT and seen bleed from CT monitor and immediately called and notified Dr. Chaparro and Dr. harry. See their orders. Patient was taken back to ICU. Cardene drip started immediately upon arrival to ICU for BP control. Patient has slurred speech (1), right arm flaccid (4), right leg (3), visual deficit (1), and a little drowsy (1). A formal NIHSS was not done at this time because a diFamily at bedside and updated throughout process by myself and both doctors. Second IV started for anticipated cryoprecipitate and possible intubation. Patient now (again) attempting to vomit and is yawning, zofran given. Patient has small about of blood tinged sputum (patient has clipped tooth that is bleeding). Prior to this event (1800), patient's symptoms had resolved, after receiving tPA.
--- NOTE | 2021-03-27 19:46 | ANES.PROC ---
Anesthesia Procedures Procedure/Date: 03/27/21 Intubation: Time Out Performed: Yes Consent: requested by attending/covering physician, from patient, risks and benefits reviewed and patient agrees to proceed Sedative (amount): other (Propofol 200mg) Paralytic (amount): rocuronium (50mg) Laryngoscope: Erlinda (3.5) ET Tube Size: 8 ET Tube Uncuffed: Yes Tube Secured Depth (cm): 23 Tube Secured Location: teeth Tube Placement Confirmation: visualized tube passing through cords, equal breath sounds bilaterally and confirmation by capnometry Patient Tolerated Procedure: well Intubation Complications: none Additional Comments: Requested to intubate unstable patient for transport, very poor dentition. DLX1, grade 1, easy mask without airway. Patient placed on vent per RT.
--- NOTE | 2021-03-27 19:49 | PC.NURSE ---
[address] pelaez here. small brain bleed. discussing transfer to downs if bed available, with pt. and family. all in agreement.
[2021-03-27] MEDS: propofol 1,000 MG/100 ML INJ 34.7 MG IV ×2 (20:04→21:01)
[2021-03-27] MEDS: nicardipine 20 MG/200 ML PREMIX 120 MG IV (20:11)
--- NOTE | 2021-03-27 20:11 | PC.NURSE ---
this nurse taking over patient care after assisting with intubation. Dr Luther gave v.o. to increase max dose of propofol to 100 mcg/kg/min, HCP was notified of BP with systolic 115 which is below the goal of 130-150, with propofol at 40 mcg/kg/min. Dr Luther advised transitioning off the nicardipine drip then prior to changing sedation meds
--- NOTE | 2021-03-27 20:15 | PC.NURSE ---
intubation note 191 100 mg of Lidocaine 100 mcg propofol 50 mg Asim administered IVP per v.o. Dr Lazo who performed the Intubation 1921 a second dose 100 mcg PRopofol admistered per v.o. ET tube place 25 at lip positive color change good lung sounds, post intubation sedation accomplished with Propofolol and Fentanyl per v.o. dr Luther
--- NOTE | 2021-03-27 20:21 | PC.NURSE ---
180 ml Cyroprecipitated AHF administed per order from dr Luther, started 1954 finished 2002, no adverse s/s at this time
[2021-03-27 20:41] LABS: Fibrinogen 209 mg/dL (174-498)
[2021-03-27 20:42] LABS: ABG PCO2 35.8 mmHg (35-45); ABG PH Result 7.46 (7.35-7.45); Arterial Blood Gas Hematocrit 52.5 % (42-52); Base Excess ABG 1.7 mmol/L (-2.0-2.0); Blood Gas Sample Site Brachial, left; Blood Gas Sample Type Arterial; HCO3 ABG 25.2 mmol/L (22-26); Oxygen Device VENT; PO2 ABG 74.3 mmHg (80.0-100.0)
--- NOTE | 2021-03-27 20:49 | PC.NURSE ---
Report called to [facility]
--- NOTE | 2021-03-27 21:55 | PC.NURSE ---
Flight crew left with Patient heading to [facility], One 100 ml vial Propofol pulled and given to the flight crew per request due their concern for running our prior to arrival. family at bedside during transfer of care
== END 2021-03-27 22:00 | disposition short-term general hospital (02) | DRG 62 ==
LOC: ER 23:19 → CSU 03-27 07:19 → MEDSURG 03-27 08:51 → CSU 03-27 13:54 → ICU 03-27 15:46
PROVIDERS: Admitting Provider Internal Medicine; Emergency Provider Emergency Medicine; Visit Provider Student in an Organized Health Care Education/Training Program
DX: I63.29 Cerebral infarction due to unspecified occlusion or stenosis of other precerebral arteries (principal); G81.94 Hemiplegia, unspecified affecting left nondominant side; I16.1 Hypertensive emergency; R47.1 Dysarthria and anarthria; H53.8 Other visual disturbances; R29.708 NIHSS score 8; E11.9 Type 2 diabetes mellitus without complications; I10 Essential (primary) hypertension; H91.92 Unspecified hearing loss, left ear; Z86.73 Personal history of transient ischemic attack (TIA), and cerebral infarction without residual deficits; E78.5 Hyperlipidemia, unspecified; F32.9 Major depressive disorder, single episode, unspecified
CPT/HCPCS: 31500; 36415; 36416; 36430; 36600; 70450; 70496; 70498; 71045; 80053; 80061; 82803; 82962; 83036; 83735; 84484; 85007; 85025; 85027; 85384; 85610; 85730; 86850; 86900; 86927; 93005; 94002; 94799; 96372; 96374; 96376; 99285; J1650; J1815; J2060; J2370; J2405; J2704; J2997; J3010; J3490; P9012; Q9967